=== PATIENT | female | born 1935 | race Caucasian/White ===

== ENCOUNTER 2016-09-12 11:16 | Outpatient (CLI) | payer MEDICARE | END 2016-09-12 11:17 | disposition home or self-care (01) | DX: I48.91 Unspecified atrial fibrillation (principal) ==

== ENCOUNTER 2016-09-19 12:54 | Outpatient (CLI) | payer MEDICARE | END 2016-09-19 12:55 | disposition home or self-care (01) | DX: I48.91 Unspecified atrial fibrillation (principal) ==

== ENCOUNTER 2016-10-03 11:05 | Outpatient (CLI) | payer MEDICARE | END 2016-10-03 11:06 | disposition home or self-care (01) | DX: I48.91 Unspecified atrial fibrillation (principal) ==

== ENCOUNTER 2016-10-09 11:07 | Outpatient (CLI) | payer MEDICARE | END 2016-10-09 11:08 | disposition home or self-care (01) | DX: I48.91 Unspecified atrial fibrillation (principal) ==

== ENCOUNTER 2016-10-16 11:58 | Outpatient (CLI) | payer MEDICARE | END 2016-10-16 11:59 | disposition home or self-care (01) | DX: I48.91 Unspecified atrial fibrillation (principal) ==

== ENCOUNTER 2016-10-23 09:58 | Outpatient (CLI) | payer MEDICARE | END 2016-10-23 09:59 | disposition home or self-care (01) | DX: I48.91 Unspecified atrial fibrillation (principal) ==

== ENCOUNTER 2016-10-24 08:00 | Outpatient (CLI) | payer MEDICARE | END 2016-10-24 08:01 | disposition home or self-care (01) | DX: I48.91 Unspecified atrial fibrillation (principal) ==

== ENCOUNTER 2016-10-30 10:50 | Outpatient (CLI) | payer MEDICARE | END 2016-10-30 10:51 | disposition home or self-care (01) | DX: I48.91 Unspecified atrial fibrillation (principal) ==

== ENCOUNTER 2016-11-06 10:31 | Outpatient (CLI) | payer MEDICARE | END 2016-11-06 10:32 | disposition home or self-care (01) | DX: I48.91 Unspecified atrial fibrillation (principal) ==

== ENCOUNTER 2016-11-13 10:40 | Outpatient (CLI) | payer MEDICARE | END 2016-11-13 10:41 | disposition home or self-care (01) | DX: I48.91 Unspecified atrial fibrillation (principal); I50.32 Chronic diastolic (congestive) heart failure ==

== ENCOUNTER 2016-12-04 10:48 | Outpatient (CLI) | payer MEDICARE | END 2016-12-04 10:49 | disposition home or self-care (01) | DX: I48.91 Unspecified atrial fibrillation (principal) ==

== ENCOUNTER 2016-12-04 23:08 | Outpatient (CLI) | payer MEDICARE | END 2016-12-04 23:09 | disposition critical access hospital (66) | DX: R09.89 Other specified symptoms and signs involving the circulatory and respiratory systems (principal); R26.81 Unsteadiness on feet | CPT/HCPCS: A0425; A0427 ==

== ENCOUNTER 2016-12-04 23:37 | Emergency (ER) | payer MEDICARE ==
[2016-12-05] MEDS ORDERED: POTASSIUM BICARB 25 MEQ TABLET PO ONE ×2 (02:19→02:22)
== END 2016-12-05 04:00 | disposition home or self-care (01) ==
DX: I48.0 Paroxysmal atrial fibrillation (principal); E87.6 Hypokalemia; E03.9 Hypothyroidism, unspecified; J45.909 Unspecified asthma, uncomplicated; I11.0 Hypertensive heart disease with heart failure; I50.9 Heart failure, unspecified; Z87.891 Personal history of nicotine dependence
CPT/HCPCS: 36415; 80048; 84484; 85025; 85610; 93005; 93010; 99284; A9270

== ENCOUNTER 2017-01-09 10:44 | Outpatient (CLI) | payer MEDICARE | END 2017-01-09 10:45 | disposition home or self-care (01) | DX: I48.91 Unspecified atrial fibrillation (principal) ==

== ENCOUNTER 2017-01-29 10:58 | Outpatient (CLI) | payer MEDICARE | END 2017-01-29 10:59 | disposition home or self-care (01) | LOC: LAB.F 10:58 | PROVIDERS: ATTEND Physician Assistant | DX: I48.91 Unspecified atrial fibrillation (principal) | CPT/HCPCS: 85610 ==

== ENCOUNTER 2017-03-16 11:00 | Outpatient (CLI) | payer MEDICARE | END 2017-03-16 11:01 | disposition home or self-care (01) | LOC: LAB.F 11:00 | PROVIDERS: ATTEND Physician Assistant | DX: I48.91 Unspecified atrial fibrillation (principal) | CPT/HCPCS: 85610 ==

== ENCOUNTER 2017-03-31 21:28 | Outpatient (CLI) | payer MEDICARE | END 2017-03-31 21:29 | disposition critical access hospital (66) | LOC: EMS 21:28 | PROVIDERS: ATTEND Surgery | DX: R47.81 Slurred speech (principal); R13.10 Dysphagia, unspecified; R06.02 Shortness of breath | CPT/HCPCS: A0425; A0427 ==

== ENCOUNTER 2017-03-31 22:02 | Emergency (ER) | payer MEDICARE ==
[2017-03-31 22:34] LABS: BASOPHILS % (AUTO) 0.6 %; EOSINOPHILS # (AUTO) 0.1 10^3/uL (0.0-0.7); EOSINOPHILS % (AUTO) 0.9 %; HCT - HEMATOCRIT 36.3 % (37.0-47.0); HGB - HEMOGLOBIN 12.3 g/dL (12.0-16.0); LYMPHOCYTES % (AUTO) 29.7 %; MEAN CORPUSCULAR HEMOGLOBIN 33.1 pg (27.0-31.0); MEAN CORPUSCULAR HGB CONC 33.9 g/dL (32.0-36.0); MEAN CORPUSCULAR VOLUME 97.8 fL (81.0-99.0); MEAN PLATELET VOLUME 8.7 fL (7.9-10.8); MONOCYTES # (AUTO) 0.6 10^3/uL (0.0-1.0); MONOCYTES % (AUTO) 8.1 %; NEUTROPHILS # (AUTO) 4.2 10^3/uL (1.5-6.6); NEUTROPHILS % (AUTO) 60.7 %; RED BLOOD COUNT 3.71 10^6/uL (4.20-5.40); UNCORRECTED WHITE BLOOD COUNT 6.9 x10^3/uL; WHITE BLOOD COUNT 6.9 x10^3/uL (4.8-10.8)
--- NOTE | 2017-03-31 22:40 | ED Physician Documentation ---
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 She says she was thinking clearly and was aware that the words and thoughts in her head were coming out as slurred and, at times, gibberish. This resolved completely PRESSURIZER and she presents asymptomatic. She says she has had similar episodes in the past and has had TIA diagnosis) Timing - duration: Minutes Timing - details: Abrupt onset, Now resolved Quality / character: No: Less responsive, Unresponsive, Confused, Disoriented, Memory Loss, Agitated, Combative, Hallucinating Associated symptoms: No: Fever, Headache, Stiff neck, Dyspnea, Cough, NVD, Urinary sx, General weakness, Focal weakness, Seizure activity, Syncope Contributing factors: Anticoagulated (coumadin) Basline status: Alert and oriented X 3, Ambulatory, Independent Similar symptoms before: Diagnosis (TIA) Review of Systems Constitutional: denies: Fever, Chills, Sweats Eyes: reports: Reviewed and negative Cardiac: reports: Reviewed and negative Respiratory: reports: Reviewed and negative GI: reports: Reviewed and negative : denies: Dysuria, Frequency Musculoskeletal: reports: Reviewed and negative Neurologic: reports: Generalized weakness (BLE weakness, but this is chronic ( she is confident that there is no new weakness)), Difficulty speaking. denies: Focal weakness, Numbness, Confused, Altered mental status, Headache, LOC PD PAST MEDICAL HISTORY - Past Medical History Cardiovascular: Congestive heart failure, Hypertension, Atrial fibrillation Respiratory: Asthma, Shortness of breath Neuro: None Endocrine/Autoimmune: HyPOthyroidism GI: None JACKER: None : None HEENT: None Psych: None Musculoskeletal: Osteoarthritis Derm: None - Past Surgical History Past Surgical History: Yes General: Bowel surgery, Colonoscopy /JACKER: Dilation and currettage HEENT: Cataracts - Present Medications Home Medications: Ambulatory Orders Medication Instructions Recorded Confirmed Levothyroxine [Synthroid] 50 mcg PO MOTUTHFRSA 03/02/13 01/22/16 traZODone [Desyrel] 100 mg PO QPM 08/01/14 01/22/16 Fluticasone [Flonase] 1 spray JAYCEE BID 03/23/15 01/22/16 Potassium Chloride 20 meq PO DAILY 03/23/15 01/22/16 Albuterol Sulfate [Proair Hfa] 2 puffs INH Q4H PRN 01/22/16 01/22/16 Atorvastatin Calcium 40 mg PO QPM 01/22/16 01/22/16 Azelastine HCl [Astelin] 1 - 2 sprays NS BID PRN 01/22/16 01/22/16 Furosemide [Lasix] 40 mg PO DAILY 01/22/16 01/22/16 Levothyroxine [Synthroid] 100 mcg PO SUWE 01/22/16 01/22/16 Mometasone/Formoterol [Dulera 200 2 puffs INH BID 01/22/16 01/22/16 Mcg/5 Mcg Inhaler] Olopatadine HCl [Patanol] 1 drop LEFTEYE BID 01/22/16 01/22/16 oxyCODONE [Roxicodone] 5 mg PO DAILY PRN 01/22/16 01/22/16 Cephalexin [Keflex] 500 mg PO TID #21 capsule 04/11/16 Dexamethasone [Decadron] 4 mg PO DAILY #5 tablet 04/11/16 Omeprazole 20 mg BID 04/11/16 04/11/16 Warfarin [Coumadin] 5 mg QPM 04/11/16 04/11/16 oxyCODONE [Roxicodone] 5 mg PO Q4-6H PRN #15 tablet 04/11/16 Acetaminophen 650 mg PO DAILY PM 12/05/16 12/05/16 Bacillus Coagulans [Probiotic] 2 each PO 12/05/16 Cetirizine [ZyrTEC] 10 mg PO ONCE 12/05/16 12/05/16 Glucosamine/D3/Boswellia Rachel 1 each PO 12/05/16 [Osteo Bi-Flex Tablet] Vitamin B Complex 1 each PO 12/05/16 Metoprolol Tartrate 5 mg PO 03/31/17 - Allergies Allergies/Adverse Reactions: Allergies Allergy/AdvReac Type Severity Reaction Status Date / Time acetaminophen [From Percocet] Allergy Unknown Verified 04/11/16 16:26 aloe vera [From Vagisil] Allergy Unknown Verified 04/11/16 16:27 amitriptyline Allergy Unknown Verified 04/11/16 16:28 amoxicillin trihydrate * Allergy Respiratory Verified 02/18/16 15:40 [From Augmentin] benzocaine [From Vagisil] Allergy Unknown Verified 04/11/16 16:27 ipratropium Allergy Unknown Verified 02/18/16 15:40 medroxyprogesterone acetate * Allergy Unknown Verified 04/11/16 16:26 [From Provera] meperidine HCl * Allergy Unknown Verified 04/11/16 16:27 [From Demerol] mineral oil * [From Vagisil] Allergy Unknown Verified 04/11/16 16:27 morphine Allergy Emesis Verified 02/18/16 15:40 nortriptyline Allergy Unknown Verified 04/11/16 16:28 oxycodone HCl * Allergy Unknown Verified 04/11/16 16:26 [From Percocet] Penicillins Allergy Unknown Verified 02/18/16 15:40 potassium clavulanate * Allergy Respiratory Verified 02/18/16 15:40 [From Augmentin] promethazine HCl * Allergy Unknown Verified 04/11/16 16:27 [From Phenergan] resorcinol [From Vagisil] Allergy Unknown Verified 04/11/16 16:27 starch [From Vagisil] Allergy Unknown Verified 04/11/16 16:27 Sulfa (Sulfonamide Allergy Nausea Verified 02/18/16 15:40 Antibiotics) sulfamethoxazole Allergy Unknown Verified 04/11/16 16:27 [From Bactrim] tiotropium bromide * Allergy Unknown Verified 04/11/16 16:28 [From Spiriva with HandiHaler] trimethoprim [From Bactrim] Allergy Unknown Verified 04/11/16 16:27 vitamin E acetate * Allergy Unknown Verified 04/11/16 16:27 [From Vagisil] vitamins A and D * Allergy Unknown Verified 04/11/16 16:27 [From Vagisil] erythromycin base AdvReac Unknown Verified 04/11/16 16:25 BIND Allergy Intermediate Emesis Uncoded 10/11/15 21:14 - Social History Does the pt smoke?: No Smoking Status: Former smoker Does the pt drink ETOH?: No Does the pt have substance abuse?: No - Immunizations Immunizations are current?: Yes Immunizations: TDAP current <10years - POLST Patient has POLST: No PD ED PE NORMAL - Vitals Vital signs reviewed: Yes - General General: Alert and oriented X 3, No acute distress, Well developed/nourished - HEENT HEENT: PERRL, EOMI, Moist mucous membranes - Neck Neck: Supple, no meningeal sign - Cardiac Cardiac: RRR - Respiratory Respiratory: No respiratory distress, Clear bilaterally - Abdomen Abdomen: Soft, Non tender - Derm Derm: Normal color, Warm and dry - Extremities Extremities: Normal ROM s pain, No edema - Neuro Neuro: Alert and oriented X 3, 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, No motor deficit, No sensory deficit, Normal speech PD ED PE EXPANDED - Cardiac Cardiac: Murmur Present (2/6 [place] cardiac base) Results - Vitals Vitals: Vital Signs - 24 hr 03/31/17 03/31/17 04/01/17 22:08 22:50 00:12 Temperature 36.7 C Heart Rate 69 65 65 Respiratory 16 24 17 Rate Blood Pressure 136/70 H 162/74 H 144/78 H O2 Saturation 97 97 97 Oxygen O2 Source Room air - Labs Labs: Laboratory Tests 03/31/17 03/31/17 03/31/17 22:27 22:27 22:27 WBC 6.9 RBC 3.71 L Hgb 12.3 Hct 36.3 L MCV 97.8 MCH 33.1 H MCHC 33.9 RDW 13.0 Plt Count 193 MPV 8.7 Neut # 4.2 Lymph # 2.0 [place] # 0.6 Eos # 0.1 Baso # 0.0 Absolute Nucleated RBC 0.00 Nucleated RBCs 0.0 PT 29.2 H INR 2.6 H Sodium 137 Potassium 3.7 Chloride 105 Carbon Dioxide 25 Anion Gap 7.0 BUN 20 Creatinine 1.1 H Estimated GFR (MDRD) 48 L Glucose 203 H Calcium 8.4 L Total Bilirubin 0.7 AST 33 ALT 25 Alkaline Phosphatase 76 Total Protein 5.9 L Albumin 3.6 Globulin 2.3 Albumin/Globulin Ratio 1.6 Lipase 19 L Urine Color Urine Clarity Urine pH Ur Specific [place] Urine Protein Urine Glucose (UA) Urine Ketones Urine Occult Blood Urine Nitrite Urine Bilirubin Urine Urobilinogen Ur Leukocyte Esterase Ur Microscopic Review Urine Culture Comments Salicylates < 6.0 Urine Opiates Screen Ur Oxycodone Screen Urine Methadone Screen Ur Propoxyphene Screen Acetaminophen < 10 L Ur Barbiturates Screen Ur Tricyclics Screen Ur Phencyclidine Scrn Ur Amphetamine Screen U Methamphetamines Scrn U Benzodiazepines Scrn Urine Cocaine Screen U Cannabinoids Screen Ethyl Alcohol < 5.0 03/31/17 03/31/17 23:04 23:04 WBC RBC Hgb Hct MCV MCH MCHC RDW Plt Count MPV Neut # Lymph # [place]uce # Eos # Baso # Absolute Nucleated RBC Nucleated RBCs PT INR Sodium Potassium Chloride Carbon Dioxide Anion Gap BUN Creatinine Estimated GFR (MDRD) Glucose Calcium Total Bilirubin AST ALT Alkaline Phosphatase Total Protein Albumin Globulin Albumin/Globulin Ratio Lipase Urine Color YELLOW Urine Clarity CLEAR Urine pH 5.5 Ur Specific [place] 1.025 Urine Protein NEGATIVE Urine Glucose (UA) NEGATIVE Urine Ketones NEGATIVE Urine Occult Blood NEGATIVE Urine Nitrite NEGATIVE Urine Bilirubin NEGATIVE Urine Urobilinogen 0.2 (NORMAL) Ur Leukocyte Esterase NEGATIVE Ur Microscopic Review NOT INDICATED Urine Culture Comments NOT INDICATED Salicylates Urine Opiates Screen NEGATIVE Ur Oxycodone Screen NEGATIVE Urine Methadone Screen NEGATIVE Ur Propoxyphene Screen NEGATIVE Acetaminophen Ur Barbiturates Screen NEGATIVE Ur Tricyclics Screen NEGATIVE Ur Phencyclidine Scrn NEGATIVE Ur Amphetamine Screen NEGATIVE U Methamphetamines Scrn NEGATIVE U Benzodiazepines Scrn NEGATIVE Urine Cocaine Screen NEGATIVE U Cannabinoids Screen NEGATIVE Ethyl Alcohol - Rads (name of study) CT head Radiology: Prelim report reviewed, See rad report PD MEDICAL DECISION MAKING - ED course Complexity details: reviewed old records, reviewed results, re-evaluated patient , considered differential, d/w patient, d/w family ED course: EKG from field reviewed, no concerning findings Departure - Departure Disposition: 01 Home, Self Care Clinical Impression: TIA (transient ischemic attack) Qualifiers: Transient cerebral ischemia type: unspecified Qualified Code(s): G45.9 - Transient cerebral ischemic attack, unspecified Condition: Good Instructions: ED Transient Ischemic Attack Comments: Contact your primary care physician as well as 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 Discharge Date/Time: 04/01/17 00:12
[2017-03-31 22:43] LABS: INR 2.6 (0.8-1.2); PT - PROTHROMBIN TIME 29.2 secs (9.9-12.6)
[2017-03-31 22:50] LABS: ALBUMIN/GLOBULIN RATIO 1.6 (1.0-2.2); BILIRUBIN,TOTAL 0.7 mg/dL (0.2-1.0); BUN - BLOOD UREA NITROGEN 20 mg/dL (6-20); CALCIUM 8.4 mg/dL (8.5-10.3); CARBON DIOXIDE - CO2 25 mmol/L (21-32); CHLORIDE 105 mmol/L (101-111); CREATININE 1.1 mg/dL (0.4-1.0); GFR - MDRD 48 (>89); GLUCOSE 203 mg/dL (70-100); LIPASE 19 U/L (22-51); POTASSIUM 3.7 mmol/L (3.5-5.0); SALICYLATE < 6.0 mg/dL; SODIUM 137 mmol/L (135-145); TOTAL PROTEIN 5.9 g/dL (6.7-8.2)
[2017-03-31 22:54] LABS: ACETAMINOPHEN < 10 ug/mL (10-30)
--- NOTE | 2017-03-31 23:08 | CT Preliminary Report ---
Exam: CT Head W/O IMPRESSION: No acute intracranial process identified. Stable finding since 05/25/2014. [facility] SITE ID: [id number]
--- NOTE | 2017-03-31 23:11 | CT Report ---
EXAM: CT HEAD EXAM DATE: 03/31/2017 10:46 PM. CLINICAL HISTORY: Dysarthria, aphasia. COMPARISON: 05/25/2014. TECHNIQUE: Multiaxial CT images were obtained from the foramen magnum to the vertex. IV contrast: Non e. Reformats: Coronal. In accordance with CT protocol optimization, one or more of the following dose reduction techniques w ere utilized for this exam: automated exposure control, adjustment of mA and/or KV based on patient s ize, or use of iterative reconstructive technique. FINDINGS: Parenchyma: No intraparenchymal hemorrhage. No evidence of mass, midline shift, or CT findings of inf arction. Major-white differentiation is distinct. Prominent perivascular space left temporal stem. Whi te matter hypodensity adjacent insula, as before. Extraaxial Spaces: Normal for age. No subdural or epidural collections identified. Ventricles: Normal in size and position. Sinuses: Imaged paranasal sinuses, orbits, and mastoids show no significant abnormality. Bones: No evidence of fracture or calvarial defect. Other: None. IMPRESSION: No acute intracranial process identified. Stable finding since 05/25/2014. [facility] Referring Provider Line: [phone] SITE ID: [id number]
[2017-03-31 23:12] LABS: BILIRUBIN,URINE NEGATIVE (NEGATIVE); PH,URINE 5.5 PH (5.0-7.5)
[2017-03-31 23:15] LABS: UA CHARGE (STRIP ONLY) YES; UR CULTURE IF IND NOT INDICATED
[2017-04-01 00:14] VITALS: BP 144/78
== END 2017-04-01 00:12 | disposition home or self-care (01) ==
LOC: EDUNIT# → ED 22:02
DX: G45.9 Transient cerebral ischemic attack, unspecified (principal); I11.0 Hypertensive heart disease with heart failure; I50.9 Heart failure, unspecified; I48.91 Unspecified atrial fibrillation; Z79.01 Long term (current) use of anticoagulants; J45.909 Unspecified asthma, uncomplicated; E03.9 Hypothyroidism, unspecified; Z87.891 Personal history of nicotine dependence
CPT/HCPCS: 36415; 70450; 80053; 80306; 80307; 81003; 83690; 85025; 85610; 99284; G0480; 80320; 80329; 81001; 87086

== ENCOUNTER 2017-04-19 09:47 | Outpatient (CLI) | payer MEDICARE ==
--- NOTE | 2017-04-19 13:04 | Ultrasound Report ---
CAROTID DUPLEX: 04/19/2017 CLINICAL INDICATION: TIA. TECHNIQUE: Real-time sonographic vascular imaging was performed by the box attacher through the carotid arteries utilizing both color-flow and Doppler spectral analysis. Multiple appliance service representative static images were saved for review. Vessel PSV cm/sec 2D Plaque Estimate % ICA/CCA PSV EDV cm/sec % Stenosis RCCA Prox 78 -- RCCA Dist 74 15 RECA 59 -- RT BULB 43 -- 0.58 12 STEVEN Prox 40 -- 0.54 10 STEVEN Mid 69 -- 0.93 21 STEVEN Dist 93 -- 1.26 23 RVA 44 RVA flow direction: Antegrade. Vessel PSV cm/sec 2D Plaque Estimate % ICA/CCA PSV EDV cm/sec % Stenosis LCCA Prox 90 -- LCCA Dist 72 14 LECA 54 -- LFT BULB 58 -- 0.81 11 LICA Prox 63 -- 0.88 16 LICA Mid 91 -- 1.26 25 LICA Dist 81 -- 1.13 21 LVA 20 LVA flow direction: Antegrade. Velocity criteria are extrapolated from diameter data as defined by the Society of Radiologists in Ultrasound Consensus Conference Radiology 2003; 229; 340-346. Degree of Stenosis % ICA PSV cm/sec Plaque Estimate % ICA/CCA RSV Ratio ICA EDV cm/sec Normal < 125 None < 2.0 < 40 <50 < 125 < 50 < 2.0 < 40 50-69 125 - 130 >/= 50 2.0 - 4.0 40 - 100 >/= 70 but less than near occlusion > 230 >/= 50 > 4.0 > 100 Near occlusion High, low, or undetectable Visible lumen Variable Variable Total occlusion Undetectable No detectable lumen Not applicable Not applicable FINDINGS RIGHT: There is mild plaquing in the right carotid bifurcation, without evidence of a focal hemodynamically significant stenosis. LEFT: There is mild plaquing in the left carotid bifurcation, without evidence of a focal hemodynamically significant stenosis. The vertebral arteries demonstrate antegrade flow bilaterally. IMPRESSION: NO EVIDENCE OF A HEMODYNAMICALLY SIGNIFICANT CAROTID STENOSIS. MTDD
== END 2017-04-19 09:48 | disposition home or self-care (01) ==
LOC: DI 09:47
PROVIDERS: ATTEND Family Medicine
DX: G45.9 Transient cerebral ischemic attack, unspecified (principal)
CPT/HCPCS: 93880

== ENCOUNTER 2017-04-23 11:01 | Outpatient (CLI) | payer MEDICARE | END 2017-04-23 11:02 | disposition home or self-care (01) | LOC: EDSEX → LAB.F 11:01 | PROVIDERS: ATTEND Physician Assistant | DX: I48.91 Unspecified atrial fibrillation (principal) | CPT/HCPCS: 85610 ==

== ENCOUNTER 2017-04-24 11:33 | Outpatient (CLI) | payer MEDICARE | END 2017-04-24 11:34 | disposition home or self-care (01) | LOC: LAB.F 11:33 | PROVIDERS: ATTEND Family Medicine | DX: I48.91 Unspecified atrial fibrillation (principal) | CPT/HCPCS: 85610 ==

== ENCOUNTER 2017-04-27 12:40 | Outpatient (CLI) | payer MEDICARE | END 2017-04-27 12:41 | disposition home or self-care (01) | LOC: LAB.F 12:40 | PROVIDERS: ATTEND Physician Assistant | DX: I48.91 Unspecified atrial fibrillation (principal) | CPT/HCPCS: 85610 ==

== ENCOUNTER 2017-05-04 11:21 | Outpatient (CLI) | payer MEDICARE | END 2017-05-04 11:22 | disposition home or self-care (01) | LOC: LAB.F 11:21 | PROVIDERS: ATTEND Physician Assistant | DX: I48.91 Unspecified atrial fibrillation (principal) | CPT/HCPCS: 85610 ==

== ENCOUNTER 2017-05-09 15:09 | Outpatient (CLI) | payer MEDICARE | END 2017-05-09 15:10 | disposition short-term general hospital (02) | LOC: EMS 15:09 | PROVIDERS: ATTEND Surgery | DX: R00.0 Tachycardia, unspecified (principal); R06.02 Shortness of breath | CPT/HCPCS: A0170; A0425; A0427 ==

== ENCOUNTER 2017-05-18 19:34 | Outpatient (CLI) | payer MEDICARE | END 2017-05-18 19:35 | disposition critical access hospital (66) | LOC: EMS 19:34 | PROVIDERS: ATTEND Surgery | DX: R09.89 Other specified symptoms and signs involving the circulatory and respiratory systems (principal) | CPT/HCPCS: A0425; A0427 ==

== ENCOUNTER 2017-05-18 20:00 | Emergency (ER) | payer MEDICARE ==
--- NOTE | 2017-05-18 20:11 | ED Physician Documentation ---
History of Present Illness - Stated complaint Stated Complaint: SOA/AFIB - Chief complaint Chief Complaint: Cardiac - History obtained from History obtained from: Patient - History of Present Illness Timing: Today Pain level max: 5 Pain level now: 4 Improved by: no ameliorating factors Worsened by: exertion - Additonal information Additional information: episode of diaphoresis this morning with light activity. diaphoresis resolved but was followed by fatigue and chest discomfort. This continued during the day and afternoon. this evening, she used her BP cuff and noted the heart rate was reading 120s-130s and irregular. Medics found patient in MARTIN, started IV and gave NS IV. Patient converted to NSR en route. Review of Systems Constitutional: reports: Fatigue, Sweats. denies: Fever, Chills Cardiac: reports: Chest pain / pressure. denies: Palpitations, Pedal edema, Calf pain Respiratory: reports: Dyspnea. denies: Cough GI: reports: Reviewed and negative Neurologic: reports: Reviewed and negative PD PAST MEDICAL HISTORY - Past Medical History Cardiovascular: Congestive heart failure, Hypertension, Atrial fibrillation Respiratory: Asthma, Shortness of breath Neuro: None Endocrine/Autoimmune: HyPOthyroidism GI: None MANAGER QUALITY SYSTEMS: None : None HEENT: None Psych: None Musculoskeletal: Osteoarthritis Derm: None - Past Surgical History Past Surgical History: Yes General: Bowel surgery, Colonoscopy /MANAGER QUALITY SYSTEMS: Dilation and currettage HEENT: Cataracts - Present Medications Home Medications: Ambulatory Orders Medication Instructions Recorded Confirmed Levothyroxine [Synthroid] 50 mcg PO MOTUTHFRSA 03/02/13 01/22/16 traZODone [Desyrel] 100 mg PO QPM 08/01/14 01/22/16 Fluticasone [Flonase] 1 spray JAYCEE BID 03/23/15 01/22/16 Potassium Chloride 20 meq PO DAILY 03/23/15 01/22/16 Albuterol Sulfate [Proair Hfa] 2 puffs INH Q4H PRN 01/22/16 01/22/16 Atorvastatin Calcium 40 mg PO QPM 01/22/16 01/22/16 Azelastine HCl [Astelin] 1 - 2 sprays NS BID PRN 01/22/16 01/22/16 Furosemide [Lasix] 40 mg PO DAILY 01/22/16 01/22/16 Levothyroxine [Synthroid] 100 mcg PO SUWE 01/22/16 01/22/16 Mometasone/Formoterol [Dulera 200 2 puffs INH BID 01/22/16 01/22/16 Mcg/5 Mcg Inhaler] Olopatadine HCl [Patanol] 1 drop LEFTEYE BID 01/22/16 01/22/16 oxyCODONE [Roxicodone] 5 mg PO DAILY PRN 01/22/16 01/22/16 Cephalexin [Keflex] 500 mg PO TID #21 capsule 04/11/16 Dexamethasone [Decadron] 4 mg PO DAILY #5 tablet 04/11/16 Omeprazole 20 mg BID 04/11/16 04/11/16 Warfarin [Coumadin] 5 mg QPM 04/11/16 04/11/16 oxyCODONE [Roxicodone] 5 mg PO Q4-6H PRN #15 tablet 04/11/16 Acetaminophen 650 mg PO DAILY PM 12/05/16 12/05/16 Bacillus Coagulans [Probiotic] 2 each PO 12/05/16 Cetirizine [ZyrTEC] 10 mg PO ONCE 12/05/16 12/05/16 Glucosamine/D3/Boswellia Rachel 1 each PO 12/05/16 [Osteo Bi-Flex Tablet] Vitamin B Complex 1 each PO 12/05/16 Metoprolol Tartrate 5 mg PO 03/31/17 - Allergies Allergies/Adverse Reactions: Allergies Allergy/AdvReac Type Severity Reaction Status Date / Time acetaminophen [From Percocet] Allergy Unknown Verified 04/11/16 16:26 aloe vera [From Vagisil] Allergy Unknown Verified 04/11/16 16:27 amitriptyline Allergy Unknown Verified 04/11/16 16:28 amoxicillin trihydrate * Allergy Respiratory Verified 02/18/16 15:40 [From Augmentin] benzocaine [From Vagisil] Allergy Unknown Verified 04/11/16 16:27 ipratropium Allergy Unknown Verified 02/18/16 15:40 medroxyprogesterone acetate * Allergy Unknown Verified 04/11/16 16:26 [From Provera] meperidine HCl * Allergy Unknown Verified 04/11/16 16:27 [From Demerol] mineral oil * [From Vagisil] Allergy Unknown Verified 04/11/16 16:27 morphine Allergy Emesis Verified 02/18/16 15:40 nortriptyline Allergy Unknown Verified 04/11/16 16:28 oxycodone HCl * Allergy Unknown Verified 04/11/16 16:26 [From Percocet] Penicillins Allergy Unknown Verified 02/18/16 15:40 potassium clavulanate * Allergy Respiratory Verified 02/18/16 15:40 [From Augmentin] promethazine HCl * Allergy Unknown Verified 04/11/16 16:27 [From Phenergan] resorcinol [From Vagisil] Allergy Unknown Verified 04/11/16 16:27 starch [From Vagisil] Allergy Unknown Verified 04/11/16 16:27 Sulfa (Sulfonamide Allergy Nausea Verified 02/18/16 15:40 Antibiotics) sulfamethoxazole Allergy Unknown Verified 04/11/16 16:27 [From Bactrim] tiotropium bromide * Allergy Unknown Verified 04/11/16 16:28 [From Spiriva with HandiHaler] trimethoprim [From Bactrim] Allergy Unknown Verified 04/11/16 16:27 vitamin E acetate * Allergy Unknown Verified 04/11/16 16:27 [From Vagisil] vitamins A and D * Allergy Unknown Verified 04/11/16 16:27 [From Vagisil] erythromycin base AdvReac Unknown Verified 04/11/16 16:25 BIND Allergy Intermediate Emesis Uncoded 10/11/15 21:14 - Social History Does the pt smoke?: No Smoking Status: Former smoker Does the pt drink ETOH?: No Does the pt have substance abuse?: No - Immunizations Immunizations are current?: Yes Immunizations: TDAP current <10years - POLST Patient has POLST: No PD ED PE NORMAL - Vitals Vital signs reviewed: Yes - General General: Alert and oriented X 3, No acute distress, Well developed/nourished - HEENT HEENT: Moist mucous membranes - Neck Neck: Supple, no meningeal sign - Cardiac Cardiac: RRR, No murmur, No gallop, No rub - Respiratory Respiratory: No respiratory distress, Clear bilaterally - Abdomen Abdomen: Soft, Non tender - Derm Derm: Normal color - Extremities Extremities: No edema - Neuro Neuro: Alert and oriented X 3 Results - Vitals Vitals: Vital Signs - 24 hr 05/18/17 05/18/17 05/18/17 20:02 20:22 21:12 Temperature 36.2 C L Heart Rate 57 L 63 Respiratory 25 H 14 Rate Blood Pressure 130/75 132/64 H Blood Pressure 122/68 [Left] O2 Saturation 98 99 05/18/17 21:47 Temperature Heart Rate 54 L Respiratory 16 Rate Blood Pressure 139/61 H Blood Pressure [Left] O2 Saturation 98 Oxygen O2 Source Room air - EKG (time done) No standard instances Rate: Rate (enter#) (57) Rhythm: NSR [place]: Normal Intervals: Normal [place] QRS: Normal Ischemia: Normal ST segments - Labs Labs: Laboratory Tests 05/18/17 05/18/17 05/18/17 20:11 20:11 20:11 WBC 8.0 RBC 3.76 L Hgb 12.7 Hct 36.6 L MCV 97.2 MCH 33.7 H MCHC 34.7 RDW 12.6 Plt Count 205 MPV 9.0 Neut # 5.0 Lymph # 2.1 [place] # 0.8 Eos # 0.1 Baso # 0.1 Absolute Nucleated RBC 0.00 Nucleated RBCs 0.0 PT INR Sodium 139 Potassium 3.6 Chloride 106 Carbon Dioxide 25 Anion Gap 8.0 BUN 18 Creatinine 1.0 Estimated GFR (MDRD) 53 L Glucose 98 Calcium 8.6 Total Bilirubin 0.7 AST 35 ALT 24 Alkaline Phosphatase 71 Troponin I < 0.04 Total Protein 6.0 L Albumin 3.5 Globulin 2.5 Albumin/Globulin Ratio 1.4 Lipase 20 L 05/18/17 20:11 WBC RBC Hgb Hct MCV MCH MCHC RDW Plt Count MPV Neut # Lymph # [place] # Eos # Baso # Absolute Nucleated RBC Nucleated RBCs PT 18.2 H INR 1.6 H Sodium Potassium Chloride Carbon Dioxide Anion Gap BUN Creatinine Estimated GFR (MDRD) Glucose Calcium Total Bilirubin AST ALT Alkaline Phosphatase Troponin I Total Protein Albumin Globulin Albumin/Globulin Ratio Lipase PD MEDICAL DECISION MAKING - ED course Complexity details: reviewed old records, reviewed results, re-evaluated patient , considered differential, d/w patient Departure - Departure Disposition: 01 Home, Self Care Clinical Impression: Atrial fibrillation, Chest pain Condition: Good Instructions: ED Chest Pain Atypical Unkn Cause Follow-Up: Ania Art PA [Primary Care Provider] - Comments: Your INR (a blood test that measures how thin your blood is, sometimes referred to as a "coumadin level") was 1.6 today. This is lower than it should be with the coumadin (warfarin) you are taking, and puts you at risk of forming a clot from the atrial fibrillation. I recommend you take a half-dose IN ADDITION to your usual nighttime dose tonight. Tomorrow (05/19/17), you should resume your usual dosing. Discharge Date/Time: 05/18/17 22:00
[2017-05-18 20:19] LABS: BASOPHILS # (AUTO) 0.1 10^3/uL (0.0-0.1); BASOPHILS % (AUTO) 0.7 %; EOSINOPHILS # (AUTO) 0.1 10^3/uL (0.0-0.7); EOSINOPHILS % (AUTO) 0.8 %; HCT - HEMATOCRIT 36.6 % (37.0-47.0); HGB - HEMOGLOBIN 12.7 g/dL (12.0-16.0); LYMPHOCYTES # (AUTO) 2.1 10^3/uL (1.5-3.5); LYMPHOCYTES % (AUTO) 26.4 %; MEAN CORPUSCULAR HEMOGLOBIN 33.7 pg (27.0-31.0); MEAN CORPUSCULAR HGB CONC 34.7 g/dL (32.0-36.0); MEAN CORPUSCULAR VOLUME 97.2 fL (81.0-99.0); MONOCYTES # (AUTO) 0.8 10^3/uL (0.0-1.0); MONOCYTES % (AUTO) 9.3 %; NEUTROPHILS % (AUTO) 62.8 %; RED BLOOD COUNT 3.76 10^6/uL (4.20-5.40); RED CELL DISTRIBUTION WIDTH 12.6 % (12.0-15.0)
[2017-05-18] MEDS ORDERED: SODIUM CHLORIDE FLUSH 0.9% 10 ML SYRINGE IVP ONE (20:20)
[2017-05-18 20:26] LABS: INR 1.6 (0.8-1.2); PT - PROTHROMBIN TIME 18.2 secs (9.9-12.6)
[2017-05-18 20:32] LABS: ALBUMIN/GLOBULIN RATIO 1.4 (1.0-2.2); BILIRUBIN,TOTAL 0.7 mg/dL (0.2-1.0); CALCIUM 8.6 mg/dL (8.5-10.3); POTASSIUM 3.6 mmol/L (3.5-5.0)
[2017-05-18 21:48] VITALS: BP 139/61
== END 2017-05-18 22:00 | disposition home or self-care (01) ==
LOC: EDUNIT# → ED 20:00
DX: I48.91 Unspecified atrial fibrillation (principal); Z79.01 Long term (current) use of anticoagulants; I45.10 Unspecified right bundle-branch block; R94.31 Abnormal electrocardiogram [ECG] [EKG]; I11.0 Hypertensive heart disease with heart failure; I50.9 Heart failure, unspecified; J45.909 Unspecified asthma, uncomplicated; E03.9 Hypothyroidism, unspecified; M19.90 Unspecified osteoarthritis, unspecified site; Z87.891 Personal history of nicotine dependence
CPT/HCPCS: 36415; 80053; 83690; 84484; 85025; 85610; 93005; 99284

== ENCOUNTER 2017-05-20 11:39 | Emergency (ER) | payer MEDICARE ==
[2017-05-20] MEDS ORDERED: HYDROmorphone 1 MG/ML SYRINGE IVP STA (12:39)
--- NOTE | 2017-05-20 12:43 | ED Physician Documentation ---
PD HPI CHEST PAIN - Stated complaint Stated Complaint: UPPER BACK PX, SOA - Chief complaint Chief Complaint: Resp - History obtained from History obtained from: Patient, Family - History of Present Illness Timing - onset: Other (81-year-old woman with history of paroxysmal atrial fibrillation on warfarin who developed atraumatic mid back pain radiating to her chest yesterday around 10 AM without specific injury. It is much worse if she takes deep breath or moves or bends or twists. It is not exertional though. She does feel short of breath with it. Review of the chart shows she had similar episode in 2015 although she says this was different albeit her examination was similar, CT of the chest and thoracic spine at that time were without specific diagnosis. It was felt to be muscular. She denies any fever, nausea, abdominal pain, or trouble with her bowel movements.) Review of Systems Ten Systems: 10 systems reviewed and negative Constitutional: denies: Fever, Chills, Myalgias Nose: denies: Rhinorrhea / runny nose, Congestion Cardiac: denies: Pedal edema, Calf pain Respiratory: denies: Cough GI: denies: Abdominal Pain, Nausea, Vomiting PD PAST MEDICAL HISTORY - Past Medical History Past Medical History: Yes Cardiovascular: Congestive heart failure, Hypertension, Atrial fibrillation Respiratory: Asthma, Shortness of breath Neuro: None Endocrine/Autoimmune: HyPOthyroidism GI: None 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 : None HEENT: None Psych: None Musculoskeletal: Osteoarthritis Derm: None - Past Surgical History Past Surgical History: Yes General: Bowel surgery, Colonoscopy /OIL WELL PERFORATOR OPERATOR: Dilation and currettage HEENT: Cataracts - Present Medications Home Medications: Ambulatory Orders Medication Instructions Recorded Confirmed Levothyroxine [Synthroid] 50 mcg PO MOTUTHFRSA 03/02/13 05/20/17 traZODone [Desyrel] 100 mg PO QPM 08/01/14 05/20/17 Fluticasone [Flonase] 1 spray JAYCEE BID 03/23/15 05/20/17 Potassium Chloride 20 meq PO DAILY 03/23/15 05/20/17 Albuterol Sulfate [Proair Hfa] 2 puffs INH Q4H PRN 01/22/16 05/20/17 Atorvastatin Calcium 60 mg PO QPM 01/22/16 05/20/17 Azelastine HCl [Astelin] 1 - 2 sprays NS BID PRN 01/22/16 05/20/17 Furosemide [Lasix] 40 mg PO DAILY 01/22/16 05/20/17 Levothyroxine [Synthroid] 100 mcg PO SUWE 01/22/16 05/20/17 Mometasone/Formoterol [Dulera 200 2 puffs INH BID 01/22/16 05/20/17 Mcg/5 Mcg Inhaler] Olopatadine HCl [Patanol] 1 drop LEFTEYE BID 01/22/16 05/20/17 oxyCODONE [Roxicodone] 5 mg PO DAILY PRN 01/22/16 05/20/17 Omeprazole 20 mg BID 04/11/16 05/20/17 Warfarin [Coumadin] 5 mg QPM 04/11/16 05/20/17 oxyCODONE [Roxicodone] 5 mg PO Q4-6H PRN #15 tablet 04/11/16 05/20/17 Acetaminophen 650 mg PO DAILY PM 12/05/16 05/20/17 Bacillus Coagulans [Probiotic] 2 each PO DAILY 12/05/16 05/20/17 Cetirizine [ZyrTEC] 10 mg PO ONCE 12/05/16 05/20/17 Glucosamine/D3/Boswellia Rachel 1 each PO DAILY 12/05/16 05/20/17 [Osteo Bi-Flex Tablet] Vitamin B Complex 1 each PO DAILY 12/05/16 05/20/17 Metoprolol Tartrate 5 mg PO DAILY 03/31/17 05/20/17 Calcitonin [Fortical] 1 sprays JAYCEE DAILY #1 bottle 05/20/17 Oxycodone HCl 10 mg PO Q4H PRN #20 tablet 05/20/17 - Allergies Allergies/Adverse Reactions: Allergies Allergy/AdvReac Type Severity Reaction Status Date / Time acetaminophen [From Percocet] Allergy Unknown Verified 05/20/17 11:53 aloe vera [From Vagisil] Allergy Unknown Verified 05/20/17 11:53 amitriptyline Allergy Unknown Verified 05/20/17 11:53 amoxicillin trihydrate * Allergy Respiratory Verified 05/20/17 11:53 [From Augmentin] benzocaine [From Vagisil] Allergy Unknown Verified 05/20/17 11:53 ipratropium Allergy Unknown Verified 05/20/17 11:53 medroxyprogesterone acetate * Allergy Unknown Verified 05/20/17 11:53 [From Provera] meperidine HCl * Allergy Unknown Verified 05/20/17 11:53 [From Demerol] mineral oil * [From Vagisil] Allergy Unknown Verified 05/20/17 11:53 morphine Allergy Emesis Verified 05/20/17 11:53 nortriptyline Allergy Unknown Verified 05/20/17 11:53 oxycodone HCl * Allergy Unknown Verified 05/20/17 11:53 [From Percocet] Penicillins Allergy Unknown Verified 05/20/17 11:53 potassium clavulanate * Allergy Respiratory Verified 05/20/17 11:53 [From Augmentin] promethazine HCl * Allergy Unknown Verified 05/20/17 11:53 [From Phenergan] resorcinol [From Vagisil] Allergy Unknown Verified 05/20/17 11:53 starch [From Vagisil] Allergy Unknown Verified 05/20/17 11:53 Sulfa (Sulfonamide Allergy Nausea Verified 05/20/17 11:53 Antibiotics) sulfamethoxazole Allergy Unknown Verified 05/20/17 11:53 [From Bactrim] tiotropium bromide * Allergy Unknown Verified 05/20/17 11:53 [From Spiriva with HandiHaler] trimethoprim [From Bactrim] Allergy Unknown Verified 05/20/17 11:53 vitamin E acetate * Allergy Unknown Verified 05/20/17 11:53 [From Vagisil] vitamins A and D * Allergy Unknown Verified 05/20/17 11:53 [From Vagisil] erythromycin base AdvReac Unknown Verified 05/20/17 11:53 BIND Allergy Intermediate Emesis Uncoded 05/20/17 11:53 - Social History Does the pt smoke?: No Smoking Status: Former smoker Does the pt drink ETOH?: No Does the pt have substance abuse?: No - Family History Family history: reports: Non contributory - Immunizations Immunizations are current?: Yes Immunizations: TDAP current <10years - POLST Patient has POLST: No PD ED PE NORMAL - Vitals Vital signs reviewed: Yes - General General: Alert and oriented X 3, Other (Winces with motion, comfortable at rest) - HEENT HEENT: PERRL, EOMI - Neck Neck: Supple, no meningeal sign, No bony TTP - Cardiac Cardiac: RRR, No murmur - Respiratory Respiratory: No respiratory distress, Clear bilaterally - Abdomen Abdomen: Non tender - Back Back: No spinal TTP, Other (Quite tender to the rhomboid and parathoracic musculature on both sides without midline spinal tenderness.) - Extremities Extremities: No deformity, No edema, No calf tenderness / cord - Neuro Neuro: Alert and oriented X 3, No motor deficit, No sensory deficit, Normal speech - Psych Psych: Normal mood, Normal affect Results - Vitals Vitals: Vital Signs - 24 hr 05/20/17 05/20/17 05/20/17 11:48 13:33 14:28 Temperature 36.6 C Heart Rate 57 L 56 L 63 Respiratory 20 14 14 Rate Blood Pressure 133/67 H 116/60 108/53 L O2 Saturation 99 100 94 Oxygen O2 Source Room air - EKG (time done) 1319 Rate: Rate (enter#) (56) Rhythm: NSR [place]: Normal Intervals: RBBB Ischemia: Normal ST segments Computer interpretation: Agree with computer - Labs Labs: Laboratory Tests 05/20/17 05/20/17 05/20/17 13:10 13:10 13:10 WBC 9.3 RBC 3.94 L Hgb 13.3 Hct 38.7 MCV 98.0 MCH 33.7 H MCHC 34.4 RDW 12.9 Plt Count 235 MPV 9.6 Neut # 6.7 H Lymph # 1.7 [place] # 0.8 Eos # 0.1 Baso # 0.0 Absolute Nucleated RBC 0.00 Nucleated RBCs 0.0 PT INR Sodium 137 Potassium 3.7 Chloride 104 Carbon Dioxide 26 Anion Gap 7.0 BUN 20 Creatinine 1.0 Estimated GFR (MDRD) 53 L Glucose 101 H Calcium 8.8 Total Bilirubin 0.7 AST 39 ALT 24 Alkaline Phosphatase 79 Troponin I < 0.04 Total Protein 6.4 L Albumin 3.5 Globulin 2.9 Albumin/Globulin Ratio 1.2 Lipase 18 L 05/20/17 13:10 WBC RBC Hgb Hct MCV MCH MCHC RDW Plt Count MPV Neut # Lymph # [place] # Eos # Baso # Absolute Nucleated RBC Nucleated RBCs PT 23.4 H INR 2.1 H Sodium Potassium Chloride Carbon Dioxide Anion Gap BUN Creatinine Estimated GFR (MDRD) Glucose Calcium Total Bilirubin AST ALT Alkaline Phosphatase Troponin I Total Protein Albumin Globulin Albumin/Globulin Ratio Lipase - Rads (name of study) XR 2v Chest and T spine Radiology: EMP read contemporaneously (Chest x-ray is clear, there is a new since 2006 compression fracture of probably T6 with one third loss of height anteriorly.) PD MEDICAL DECISION MAKING - ED course ED course: 81-year-old woman presents with acute back pain, it does seem to be musculoskeletal based on history and physical examination. X-ray demonstrates a at least somewhat new T6 compression fracture which may be causative. She felt comfortable going home after a milligram of Dilaudid and some time to rest here. Departure - Departure Disposition: Home, Self Care Clinical Impression: Muscle spasm of back Back pain Qualifiers: Back pain location: thoracic back pain Chronicity: acute Back pain laterality: midline Qualified Code(s): M54.6 - Pain in thoracic spine Wedge compression fracture of T6 vertebra Qualifiers: Encounter type: initial encounter Fracture type: closed Qualified Code(s): S22.050A - Wedge compression fracture of T5-T6 vertebra, initial encounter for closed fracture Condition: Good Record reviewed to determine appropriate education?: Yes Instructions: ED Fx Comp Vertebral Follow-Up: Grzegorz Diamond MD [Provider Admit Priv/Credential] - Tomorrow Prescriptions: Calcitonin [Fortical] 1 sprays JAYCEE DAILY #1 bottle Oxycodone HCl 10 mg PO Q4H PRN #20 tablet PRN Reason: Pain Comments: Do not drink or drive while taking narcotic pain medication. Note that many narcotic pain relievers also contain Tylenol/acetaminophen. Please ensure that your total dose of acetaminophen from all sources does not exceed 3 g (3000 mg) per day. You may get constipated while on this medication. Take a stool softener such as Colace twice a day while you are on it. Also add an [id number] laxative such as senna or MiraLAX on any day that you do not have a bowel movement. If you received a narcotic pain medication or sedative while in the emergency department, do not drive for the next 24 hours.
[2017-05-20] MEDS ORDERED: HYDROmorphone 1 MG/ML SYRINGE ONE (13:13)
[2017-05-20] MEDS ORDERED: SODIUM CHLORIDE FLUSH 0.9% 10 ML SYRINGE IVP ONE (13:13)
--- NOTE | 2017-05-20 13:14 | XRAY Preliminary Report ---
Exam: XR Chest 2 View PA/LAT IMPRESSION: 1. No acute pulmonary consolidation. 2. Age-indeterminate compression fracture of T6. [facility] SITE ID: [id number]
--- NOTE | 2017-05-20 13:16 | XRAY Report ---
EXAM: CHEST RADIOGRAPHY EXAM DATE: 05/20/2017 01:01 PM. CLINICAL HISTORY: Severe pain COMPARISON: Chest x-ray 04/11/2016. TECHNIQUE: 2 views. FINDINGS: Lungs/Pleura: Mild hyperinflation without pleural effusion or pneumothorax. No focal consolidation. Mediastinum: Normal heart size with aortic tortuosity and atherosclerotic calcification. Other: Age-indeterminate compression fracture of T6. Surgical clips in left upper quadrant. IMPRESSION: 1. No acute pulmonary consolidation. 2. Age-indeterminate compression fracture of T6. [facility] Referring Provider Line: [phone] SITE ID: [id number]
--- NOTE | 2017-05-20 13:18 | XRAY Preliminary Report ---
Exam: XR Thoracic Spine 2 View IMPRESSION: Osteopenia with age-indeterminate (although new since 2016) compression fracture, probabl y T6. Loss of height is near one third anteriorly. No bony retropulsed fragments. [facility] SITE ID: [id number]
[2017-05-20 13:19] LABS: BASOPHILS % (AUTO) 0.3 %; EOSINOPHILS # (AUTO) 0.1 10^3/uL (0.0-0.7); EOSINOPHILS % (AUTO) 0.9 %; HCT - HEMATOCRIT 38.7 % (37.0-47.0); HGB - HEMOGLOBIN 13.3 g/dL (12.0-16.0); LYMPHOCYTES # (AUTO) 1.7 10^3/uL (1.5-3.5); LYMPHOCYTES % (AUTO) 18.4 %; MEAN CORPUSCULAR HEMOGLOBIN 33.7 pg (27.0-31.0); MEAN CORPUSCULAR HGB CONC 34.4 g/dL (32.0-36.0); MEAN PLATELET VOLUME 9.6 fL (7.9-10.8); MONOCYTES # (AUTO) 0.8 10^3/uL (0.0-1.0); MONOCYTES % (AUTO) 8.8 %; NEUTROPHILS # (AUTO) 6.7 10^3/uL (1.5-6.6); NEUTROPHILS % (AUTO) 71.6 %; RED BLOOD COUNT 3.94 10^6/uL (4.20-5.40); RED CELL DISTRIBUTION WIDTH 12.9 % (12.0-15.0); UNCORRECTED WHITE BLOOD COUNT 9.3 x10^3/uL; WHITE BLOOD COUNT 9.3 x10^3/uL (4.8-10.8)
--- NOTE | 2017-05-20 13:21 | XRAY Report ---
EXAM: THORACIC SPINE RADIOGRAPHY EXAM DATE: 05/20/2017 01:02 PM. CLINICAL HISTORY: Back pain. COMPARISON: Chest x-ray 04/11/2016. TECHNIQUE: 2 views. FINDINGS: Alignment: Normal. No spondylolisthesis or scoliosis. Bones: Osteopenia with compression fracture of the mid thoracic spine, likely T6. Loss of height is o ne third anteriorly. No bony retropulsed fragments. Disks: Small thoracic osteophytes. Soft Tissues: Surgical clips in left upper quadrant. IMPRESSION: Osteopenia with age-indeterminate (although new since 2016) compression fracture, probabl y T6. Loss of height is near one third anteriorly. No bony retropulsed fragments. [facility] Referring Provider Line: [phone] SITE ID: [id number]
[2017-05-20 13:29] LABS: INR 2.1 (0.8-1.2); PT - PROTHROMBIN TIME 23.4 secs (9.9-12.6)
[2017-05-20 13:40] LABS: ALBUMIN/GLOBULIN RATIO 1.2 (1.0-2.2); BILIRUBIN,TOTAL 0.7 mg/dL (0.2-1.0); CALCIUM 8.8 mg/dL (8.5-10.3); POTASSIUM 3.7 mmol/L (3.5-5.0); TOTAL PROTEIN 6.4 g/dL (6.7-8.2)
[2017-05-20 15:34] VITALS: BP 112/57
== END 2017-05-20 15:18 | disposition home or self-care (01) ==
LOC: ED 11:39
DX: S22.050A Wedge compression fracture of T5-T6 vertebra, initial encounter for closed fracture (principal); M62.830 Muscle spasm of back; M54.6 Pain in thoracic spine; X58.XXXA Exposure to other specified factors, initial encounter; I45.10 Unspecified right bundle-branch block; R94.31 Abnormal electrocardiogram [ECG] [EKG]; I48.0 Paroxysmal atrial fibrillation; Z79.01 Long term (current) use of anticoagulants; I11.0 Hypertensive heart disease with heart failure; I50.9 Heart failure, unspecified; E03.9 Hypothyroidism, unspecified; J45.909 Unspecified asthma, uncomplicated; M19.90 Unspecified osteoarthritis, unspecified site; Z87.891 Personal history of nicotine dependence
CPT/HCPCS: 36415; 71020; 72070; 80053; 83690; 84484; 85025; 85610; 93005; 96374; 99283; 99284; J1170

== ENCOUNTER 2017-05-24 16:56 | Outpatient (CLI) | payer MEDICARE | END 2017-05-24 16:57 | disposition critical access hospital (66) | LOC: EMS 16:56 | PROVIDERS: ATTEND Surgery | DX: R51 Headache (principal); M54.5 Low back pain | CPT/HCPCS: A0425; A0429 ==

== ENCOUNTER 2017-05-24 17:25 | Emergency (ER) | payer MEDICARE ==
--- NOTE | 2017-05-24 18:30 | ED Physician Documentation ---
PD HPI BACK PAIN - Stated complaint Stated Complaint: BACK PX - Chief complaint Chief Complaint: Back Pain - History obtained from History obtained from: Patient, Family - History of Present Illness Timing - onset: Other (Recent diagnosis of back pain due to atraumatic T6 fracture, she is taking oxycodone and calcitonin. 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 : None HEENT: None Psych: None Musculoskeletal: Osteoarthritis Derm: None - Past Surgical History Past Surgical History: Yes General: Bowel surgery, Colonoscopy /SECTION REPAIRER: Dilation and currettage HEENT: Cataracts - Present Medications Home Medications: Ambulatory Orders Medication Instructions Recorded Confirmed Levothyroxine [Synthroid] 50 mcg PO MOTUTHFRSA 03/02/13 05/20/17 traZODone [Desyrel] 100 mg PO QPM 08/01/14 05/20/17 Fluticasone [Flonase] 1 spray JAYCEE BID 03/23/15 05/20/17 Potassium Chloride 20 meq PO DAILY 03/23/15 05/20/17 Albuterol Sulfate [Proair Hfa] 2 puffs INH Q4H PRN 01/22/16 05/20/17 Atorvastatin Calcium 60 mg PO QPM 01/22/16 05/20/17 Azelastine HCl [Astelin] 1 - 2 sprays NS BID PRN 01/22/16 05/20/17 Furosemide [Lasix] 40 mg PO DAILY 01/22/16 05/20/17 Levothyroxine [Synthroid] 100 mcg PO SUWE 01/22/16 05/20/17 Mometasone/Formoterol [Dulera 200 2 puffs INH BID 01/22/16 05/20/17 Mcg/5 Mcg Inhaler] Olopatadine HCl [Patanol] 1 drop LEFTEYE BID 01/22/16 05/20/17 oxyCODONE [Roxicodone] 5 mg PO DAILY PRN 01/22/16 05/20/17 Omeprazole 20 mg BID 04/11/16 05/20/17 Warfarin [Coumadin] 5 mg QPM 04/11/16 05/20/17 oxyCODONE [Roxicodone] 5 mg PO Q4-6H PRN #15 tablet 04/11/16 05/20/17 Acetaminophen 650 mg PO DAILY PM 12/05/16 05/20/17 Bacillus Coagulans [Probiotic] 2 each PO DAILY 12/05/16 05/20/17 Cetirizine [ZyrTEC] 10 mg PO ONCE 12/05/16 05/20/17 Glucosamine/D3/Boswellia Rachel 1 each PO DAILY 12/05/16 05/20/17 [Osteo Bi-Flex Tablet] Vitamin B Complex 1 each PO DAILY 12/05/16 05/20/17 Metoprolol Tartrate 5 mg PO DAILY 03/31/17 05/20/17 Calcitonin [Fortical] 1 sprays JAYCEE DAILY #1 bottle 05/20/17 Oxycodone HCl 10 mg PO Q4H PRN #20 tablet 05/20/17 - Allergies Allergies/Adverse Reactions: Allergies Allergy/AdvReac Type Severity Reaction Status Date / Time acetaminophen [From Percocet] Allergy Unknown Verified 05/24/17 17:34 aloe vera [From Vagisil] Allergy Unknown Verified 05/24/17 17:34 amitriptyline Allergy Unknown Verified 05/24/17 17:34 amoxicillin trihydrate * Allergy Respiratory Verified 05/24/17 17:34 [From Augmentin] benzocaine [From Vagisil] Allergy Unknown Verified 05/24/17 17:34 ipratropium Allergy Unknown Verified 05/24/17 17:34 medroxyprogesterone acetate * Allergy Unknown Verified 05/24/17 17:34 [From Provera] meperidine HCl * Allergy Unknown Verified 05/24/17 17:34 [From Demerol] mineral oil * [From Vagisil] Allergy Unknown Verified 05/24/17 17:34 morphine Allergy Emesis Verified 05/24/17 17:34 nortriptyline Allergy Unknown Verified 05/24/17 17:34 oxycodone HCl * Allergy Unknown Verified 05/24/17 17:34 [From Percocet] Penicillins Allergy Unknown Verified 05/24/17 17:34 potassium clavulanate * Allergy Respiratory Verified 05/24/17 17:34 [From Augmentin] promethazine HCl * Allergy Unknown Verified 05/24/17 17:34 [From Phenergan] resorcinol [From Vagisil] Allergy Unknown Verified 05/24/17 17:34 starch [From Vagisil] Allergy Unknown Verified 05/24/17 17:34 Sulfa (Sulfonamide Allergy Nausea Verified 05/24/17 17:34 Antibiotics) sulfamethoxazole Allergy Unknown Verified 05/24/17 17:34 [From Bactrim] tiotropium bromide * Allergy Unknown Verified 05/24/17 17:34 [From Spiriva with HandiHaler] trimethoprim [From Bactrim] Allergy Unknown Verified 05/24/17 17:34 vitamin E acetate * Allergy Unknown Verified 05/24/17 17:34 [From Vagisil] vitamins A and D * Allergy Unknown Verified 05/24/17 17:34 [From Vagisil] erythromycin base AdvReac Unknown Verified 05/24/17 17:34 BIND Allergy Intermediate Emesis Uncoded 05/24/17 17:34 - Social History Does the pt smoke?: No Smoking Status: Former smoker Does the pt drink ETOH?: No Does the pt have substance abuse?: No - Immunizations Immunizations are current?: Yes Immunizations: TDAP current <10years - POLST Patient has POLST: No PD ED PE NORMAL - Vitals Vital signs reviewed: Yes - General General: Alert and oriented X 3, Other ([place] with motion, comfortable at rest) - HEENT HEENT: PERRL, EOMI - Neck Neck: Supple, no meningeal sign, No bony TTP - Cardiac Cardiac: RRR, No murmur - Respiratory Respiratory: No respiratory distress, Clear bilaterally - Abdomen Abdomen: Normal bowel sounds, Soft, Non tender - Derm Derm: Normal color, Warm and dry - Extremities Extremities: No deformity, No edema, No calf tenderness / cord - Neuro Neuro: Alert and oriented X 3, Normal speech - Psych Psych: Normal mood, Normal affect Results - Vitals Vitals: Vital Signs - 24 hr 05/24/17 17:29 Temperature 36.7 C Heart Rate 61 Respiratory 16 Rate Blood Pressure 131/65 H O2 Saturation 97 Oxygen O2 Source Room air PD MEDICAL DECISION MAKING - ED course ED course: 81-year-old woman with uncontrolled pain from a T6 fracture but also significant side effects from her pain medication. I called [facility] and spoke with Dr. Gonzalez there, they do not really have anything to offer as far as respite nursing care or inpatient care given the diagnosis. Given our limitations I will give her a fentanyl patch here, no prescription to decrease her need for oxycodone and she will see her doctor tomorrow. Departure - Departure Disposition: 01 Home, Self Care Clinical Impression: Wedge compression fracture of T6 vertebra Qualifiers: Encounter type: initial encounter Fracture type: closed Qualified Code(s): S22.050A - Wedge compression fracture of T5-T6 vertebra, initial encounter for closed fracture Condition: Good Record reviewed to determine appropriate education?: Yes Instructions: ED Fx Comp Vertebral Comments: The pain patch should last for several days and hopefully decrease her need to take oxycodone. Follow-up with your doctor tomorrow. Your blood pressure was elevated today on check into the emergency department. This does not mean that you have hypertension, it is a common phenomenon to come to the emergency department and have elevated blood pressure. I recommend that she see your primary care physician within the week to have it rechecked when you are feeling better.
[2017-05-24] MEDS ORDERED: fentaNYL 25 MCG PATCH TOP STA (19:13)
[2017-05-24 19:31] VITALS: BP 125/55
== END 2017-05-24 19:39 | disposition home or self-care (01) ==
LOC: EDUNIT# → ED 17:25
DX: S22.050A Wedge compression fracture of T5-T6 vertebra, initial encounter for closed fracture (principal); X58.XXXA Exposure to other specified factors, initial encounter; M54.6 Pain in thoracic spine; R44.1 Visual hallucinations; T40.2X5A Adverse effect of other opioids, initial encounter; I11.0 Hypertensive heart disease with heart failure; I50.9 Heart failure, unspecified; E03.9 Hypothyroidism, unspecified; I48.91 Unspecified atrial fibrillation; Z79.01 Long term (current) use of anticoagulants; Z87.891 Personal history of nicotine dependence
CPT/HCPCS: 99283; 99284; A9270

== ENCOUNTER 2017-05-30 12:21 | Outpatient (CLI) | payer MEDICARE ==
[2017-05-30] MEDS ORDERED: IOPAMIDOL-300 100 ML VIAL ONE (14:16)
== END 2017-05-30 12:22 | disposition critical access hospital (66) ==
LOC: EMS 12:21
PROVIDERS: ATTEND Surgery
DX: M54.9 Dorsalgia, unspecified (principal); R06.02 Shortness of breath; R07.9 Chest pain, unspecified
CPT/HCPCS: A0425; A0429

== ENCOUNTER 2017-05-30 13:00 | Emergency (ER) | payer MEDICARE ==
[2017-05-30] MEDS ORDERED: fentaNYL 100 MCG/2 ML VIAL IVP STA ×2 (13:27→16:23)
--- NOTE | 2017-05-30 13:51 | ED Physician Documentation ---
History of Present Illness - Stated complaint Stated Complaint: BACK PX - Chief complaint Chief Complaint: Back Pain - Additonal information Additional information: hx from pt 81 female on coumadin states she has had sharp severe pain like a knife being twisted in her to her mid T spine region for a week, has been seen twice for same, xrays showed T spine age indet compression fx and pain was felt due to this first txed with oxycodone which caused delerium then fentanyl patches and even that is not controlling her pain now pain radiates into her chest no soa except 2/2 pain with breathing no abd pain no numbness weakness no fever Review of Systems Constitutional: denies: Fever, Chills Cardiac: reports: Chest pain / pressure Respiratory: denies: Dyspnea (2/2 pain) GI: denies: Abdominal Pain, Nausea, Vomiting Neurologic: denies: Focal weakness, Numbness Endocrine: reports: Easy bruising / bleeding PD PAST MEDICAL HISTORY - Past Medical History Cardiovascular: Congestive heart failure, Hypertension, Atrial fibrillation Respiratory: Asthma, Shortness of breath Neuro: None Endocrine/Autoimmune: HyPOthyroidism GI: None 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 : None HEENT: None Psych: None Musculoskeletal: Osteoarthritis Derm: None - Past Surgical History Past Surgical History: Yes General: Bowel surgery, Colonoscopy /STEAMBOAT INSPECTOR: Dilation and currettage HEENT: Cataracts - Present Medications Home Medications: Ambulatory Orders Medication Instructions Recorded Confirmed Levothyroxine [Synthroid] 50 mcg PO MOTUTHFRSA 03/02/13 05/20/17 traZODone [Desyrel] 100 mg PO QPM 08/01/14 05/20/17 Fluticasone [Flonase] 1 spray JAYCEE BID 03/23/15 05/20/17 Potassium Chloride 20 meq PO DAILY 03/23/15 05/20/17 Albuterol Sulfate [Proair Hfa] 2 puffs INH Q4H PRN 01/22/16 05/20/17 Atorvastatin Calcium 60 mg PO QPM 01/22/16 05/20/17 Azelastine HCl [Astelin] 1 - 2 sprays NS BID PRN 01/22/16 05/20/17 Furosemide [Lasix] 40 mg PO DAILY 01/22/16 05/20/17 Levothyroxine [Synthroid] 100 mcg PO SUWE 01/22/16 05/20/17 Mometasone/Formoterol [Dulera 200 2 puffs INH BID 01/22/16 05/20/17 Mcg/5 Mcg Inhaler] Olopatadine HCl [Patanol] 1 drop LEFTEYE BID 01/22/16 05/20/17 oxyCODONE [Roxicodone] 5 mg PO DAILY PRN 01/22/16 05/20/17 Omeprazole 20 mg BID 04/11/16 05/20/17 Warfarin [Coumadin] 5 mg QPM 04/11/16 05/20/17 oxyCODONE [Roxicodone] 5 mg PO Q4-6H PRN #15 tablet 04/11/16 05/20/17 Acetaminophen 650 mg PO DAILY PM 12/05/16 05/20/17 Bacillus Coagulans [Probiotic] 2 each PO DAILY 12/05/16 05/20/17 Cetirizine [ZyrTEC] 10 mg PO ONCE 12/05/16 05/20/17 Glucosamine/D3/Boswellia Rachel 1 each PO DAILY 12/05/16 05/20/17 [Osteo Bi-Flex Tablet] Vitamin B Complex 1 each PO DAILY 12/05/16 05/20/17 Metoprolol Tartrate 5 mg PO DAILY 03/31/17 05/20/17 Calcitonin [Fortical] 1 sprays JAYCEE DAILY #1 bottle 05/20/17 Oxycodone HCl 10 mg PO Q4H PRN #20 tablet 05/20/17 Alendronate [Fosamax] 70 mg PO Q7D #12 tablet 05/30/17 - Allergies Allergies/Adverse Reactions: Allergies Allergy/AdvReac Type Severity Reaction Status Date / Time acetaminophen [From Percocet] Allergy Unknown Verified 05/24/17 17:34 aloe vera [From Vagisil] Allergy Unknown Verified 05/24/17 17:34 amitriptyline Allergy Unknown Verified 05/24/17 17:34 amoxicillin trihydrate * Allergy Respiratory Verified 05/24/17 17:34 [From Augmentin] benzocaine [From Vagisil] Allergy Unknown Verified 05/24/17 17:34 ipratropium Allergy Unknown Verified 05/24/17 17:34 medroxyprogesterone acetate * Allergy Unknown Verified 05/24/17 17:34 [From Provera] meperidine HCl * Allergy Unknown Verified 05/24/17 17:34 [From Demerol] mineral oil * [From Vagisil] Allergy Unknown Verified 05/24/17 17:34 morphine Allergy Emesis Verified 05/24/17 17:34 nortriptyline Allergy Unknown Verified 05/24/17 17:34 oxycodone HCl * Allergy Unknown Verified 05/24/17 17:34 [From Percocet] Penicillins Allergy Unknown Verified 05/24/17 17:34 potassium clavulanate * Allergy Respiratory Verified 05/24/17 17:34 [From Augmentin] promethazine HCl * Allergy Unknown Verified 05/24/17 17:34 [From Phenergan] resorcinol [From Vagisil] Allergy Unknown Verified 05/24/17 17:34 starch [From Vagisil] Allergy Unknown Verified 05/24/17 17:34 Sulfa (Sulfonamide Allergy Nausea Verified 05/24/17 17:34 Antibiotics) sulfamethoxazole Allergy Unknown Verified 05/24/17 17:34 [From Bactrim] tiotropium bromide * Allergy Unknown Verified 05/24/17 17:34 [From Spiriva with HandiHaler] trimethoprim [From Bactrim] Allergy Unknown Verified 05/24/17 17:34 vitamin E acetate * Allergy Unknown Verified 05/24/17 17:34 [From Vagisil] vitamins A and D * Allergy Unknown Verified 05/24/17 17:34 [From Vagisil] erythromycin base AdvReac Unknown Verified 05/24/17 17:34 BIND Allergy Intermediate Emesis Uncoded 05/24/17 17:34 - Social History Does the pt smoke?: No Smoking Status: Former smoker Does the pt drink ETOH?: No Does the pt have substance abuse?: No - Immunizations Immunizations are current?: Yes Immunizations: TDAP current <10years - POLST Patient has POLST: No PD ED PE NORMAL - Vitals Vital signs reviewed: Yes - General General: Alert and oriented X 3 - HEENT HEENT: PERRL - Neck Neck: Supple, no meningeal sign - Cardiac Cardiac: RRR - Respiratory Respiratory: No respiratory distress, Clear bilaterally - Abdomen Abdomen: Soft, Non tender, Other (no pulsatile mass) - Back Back: Other (severe TTP across entire upper back and lateral right ribs s ecchymosis) - Derm Derm: Normal color, Other (no shingles rash) - Neuro Neuro: Alert and oriented X 3, No motor deficit, No sensory deficit Results - Vitals Vitals: Vital Signs - 24 hr 05/30/17 05/30/17 05/30/17 13:11 13:52 16:35 Temperature 36.2 C L Heart Rate 65 66 62 Respiratory 16 16 16 Rate Blood Pressure 132/97 H 159/67 H 139/62 H O2 Saturation 98 95 96 05/30/17 20:27 Temperature Heart Rate 73 Respiratory Rate Blood Pressure 114/69 O2 Saturation 93 Oxygen O2 Source Room air - Labs Labs: Laboratory Tests 05/30/17 05/30/17 13:41 17:00 Creatinine 0.9 Estimated GFR (MDRD) 60 L Urine Color YELLOW Urine Clarity CLEAR Urine pH 8.0 H Ur Specific [place] 1.010 Urine Protein NEGATIVE Urine Glucose (UA) NEGATIVE Urine Ketones NEGATIVE Urine Occult Blood NEGATIVE Urine Nitrite NEGATIVE Urine Bilirubin NEGATIVE Urine Urobilinogen 0.2 (NORMAL) Ur Leukocyte Esterase NEGATIVE Ur Microscopic Review NOT INDICATED Urine Culture Comments NOT INDICATED - Rads (name of study) CTA chest Radiology: See rad report (new severe T 6 body comminuted acute to subacute fx involving the anterior and middle corrtex corelate clinically, no dissection, bronchiectasis, very small lingular consolidation (no fever cough), small pleural effusions and atelectasis (hurts to breathe) 7 mm hazy nodule RUL rec [address], CBD 9 mm unchanged) CT AP Radiology: See rad report (no acute) PD MEDICAL DECISION MAKING - ED course ED course: pain shapr and now into chest so got CT chest after CT chest pt feveloped abd pain as well so then that was imaged no acute findings except further detail of T6 and confirmation it is acute consulted [facility] [place] Ordaz and they rec toradol and Jewit brace (all we had was TLSO so used that) and start biphosphonates and said if her pain remained so severe that she cried and screamed with every movement he would do surgery to stablize the bone with the goa of comfort but given her cardiac issues surgery is of course very high risk pt doing very well in brace moving much more comfortable - but too big - will dc but asked [employer] to deliver Jewitt brace Departure - Departure Disposition: 01 Home, Self Care Clinical Impression: Wedge compression fracture of T6 vertebra Qualifiers: Encounter type: subsequent encounter Fracture type: closed Fracture healing: with routine healing Qualified Code(s): S22.050D - Wedge compression fracture of T5-T6 vertebra, subsequent encounter for fracture with routine healing Condition: Good Instructions: ED Fx Comp Vertebral Follow-Up: Grzegorz Diamond MD [Primary Care Provider] - Prescriptions: Alendronate [Fosamax] 70 mg PO Q7D #12 tablet Comments: Wear the brace at all times except to bathe - it really seems to be helping the pain I will try and have a more comfortable brace delivered to your home Continue your pain medications as prescribed by your PMD And start the medication for osteoporosis that the airport operations specialist recommended - but check with Dr Diamond first to make sure it doesn't interact with the nasal spray he prescribed And lastly the radiologist saw a nodule in your lung and recommend a repeat CT of your chest in 3 months Discharge Date/Time: 05/30/17 20:27
[2017-05-30] MEDS ORDERED: SODIUM CHLORIDE FLUSH 0.9% 10 ML SYRINGE IVP ONE (13:52)
[2017-05-30] MEDS ORDERED: fentaNYL 100 MCG/2 ML VIAL ONE ×2 (13:52→16:35)
[2017-05-30 13:58] LABS: CREATININE 0.9 mg/dL (0.4-1.0)
[2017-05-30] MEDS ORDERED: IOPAMIDOL-300 100 ML VIAL IVP ONE (14:38)
[2017-05-30] MEDS ORDERED: ACETAMINOPHEN 1,000 MG/100 ML 100 ML IV STA (15:11)
[2017-05-30] MEDS ORDERED: ACETAMINOPHEN 1,000 MG/100 ML 100 ML IV ONE (15:35)
--- NOTE | 2017-05-30 15:35 | CT Preliminary Report ---
Exam: CT Chest Angio (AORTA) IMPRESSION: 1. New severe T6 vertebral body comminuted acute to subacute appearing compression fracture which inv olves the anterior and middle cortex. Correlate clinically. 2. No evidence for aortic aneurysm or dissection. 3. Mild bronchiectasis seen in all the lobes. New very small lingular consolidation extending to the left hilum. New small bilateral pleural effusions and bibasilar atelectasis. New mild right base post erior lower lobe consolidation, could be atelectasis however pneumonia not excluded. Small nodular billings zy opacity is new in the right upper lobe axial image 50, measures 7 mm. This could be infectious/inf lammatory versus malignant. If there is low risk for malignancy, recommend a 6 month follow-up chest CT. If there is high risk for malignancy, recommend a three-month follow-up chest CT. 4. Mildly dilated common duct measuring 9 mm, appears unchanged. 5. See the remainder of the findings as above. [facility] SITE ID: [id number]
--- NOTE | 2017-05-30 15:38 | CT Report ---
EXAM: CT ANGIOGRAM CHEST AND ABDOMEN EXAM DATE: 05/30/2017 02:39 PM. CLINICAL HISTORY: Severe intractable back pain now rad to chest . COMPARISONS: None. TECHNIQUE: Routine axial helical CT angiographic imaging was performed through the chest, abdomen, and pelvis. I V Contrast: 100 mL Isovue-300. Reconstructions: Coronal, sagittal, and 3D MIP reconstructions of the aorta. In accordance with CT protocol optimization, one or more of the following dose reduction techniques w ere utilized for this exam: automated exposure control, adjustment of mA and/or KV based on patient s ize, or use of iterative reconstructive technique. FINDINGS: Vascular Structures: No thoracic aortic aneurysm or dissection. Mild to moderate calcified plaque at the thoracic aorta.. Moderate atherosclerotic disease with calcified and noncalcified plaque at the p roximal left subclavian artery without definite hemodynamically significant stenosis. Patent proximal left common carotid artery and innominate artery. No evidence for pulmonary emboli. Patent celiac artery. Calcified plaque narrows the proximal superior mesenteric artery at the origin where near 50% stenosis could be present, could be hemodynamically significant. Greater than 50% hemo dynamically significant stenosis suspected at the origin and proximal right renal artery near 50% demetrius nosis suspected at the origin of the left renal artery. Both renal arteries appear patent. There is s ymmetric enhancement of both kidneys. Marked atherosclerotic Calcification of the abdominal aorta and iliac arteries. No evidence for abdom inal aortic aneurysm or dissection. Lungs/Pleura: Mild bronchiectasis seen in all the lobes. New very small lingular consolidation extend ing to the left hilum. New small bilateral pleural effusions and bibasilar atelectasis. New mild righ t base posterior lower lobe consolidation, could be atelectasis however pneumonia not excluded. Small nodular hazy opacity is new in the right upper lobe axial image 50, measures 7 mm Mediastinum: Borderline cardiomegaly. Coronary artery calcification. Minimal pericardial effusion. No mediastinal or hilar lymphadenopathy. Liver: Mild liver surface irregularity as can be seen with cirrhosis. Gallbladder: Normal. Bile ducts: Mildly dilated common duct measuring 9 mm, appears unchanged. There are pancreas: Atrophi c. Spleen: Unremarkable. Adrenals: Normal. Kidneys: There appears to be mild bilateral renal atrophy. No hydronephrosis. Bowel: No evidence for bowel obstruction. No acute bowel findings are seen. Moderate stool in the col on. No free fluid or free air. There appears to be ventral hernia repair. Bones: New severe T6 vertebral body comminuted acute to subacute appearing compression fracture which involves the anterior and middle cortex. Correlate clinically. Moderate posterior endplate osteophyt es narrow the anterior thecal sac at T6-T7. IMPRESSION: 1. New severe T6 vertebral body comminuted acute to subacute appearing compression fracture which inv olves the anterior and middle cortex. Correlate clinically. 2. No evidence for aortic aneurysm or dissection. 3. Mild bronchiectasis seen in all the lobes. New very small lingular consolidation extending to the left hilum. New small bilateral pleural effusions and bibasilar atelectasis. New mild right base post erior lower lobe consolidation, could be atelectasis however pneumonia not excluded. Small nodular billings zy opacity is new in the right upper lobe axial image 50, measures 7 mm. This could be infectious/inf lammatory versus malignant. If there is low risk for malignancy, recommend a 6 month follow-up chest CT. If there is high risk for malignancy, recommend a three-month follow-up chest CT. 4. Mildly dilated common duct measuring 9 mm, appears unchanged. 5. See the remainder of the findings as above. [facility] Referring Provider Line: [phone] SITE ID: [id number]
[2017-05-30 17:06] LABS: BILIRUBIN,URINE NEGATIVE (NEGATIVE)
[2017-05-30 17:09] LABS: UA CHARGE (STRIP ONLY) YES; UR CULTURE IF IND NOT INDICATED
[2017-05-30] MEDS ORDERED: KETOROLAC 60 MG/2 ML VIAL IVP STA (17:30)
--- NOTE | 2017-05-30 18:29 | CT Preliminary Report ---
Exam: CT Abdomen/Pelvis W/O IMPRESSION: Chronic and incidental findings. No acute disease. [facility] SITE ID: [id number]
--- NOTE | 2017-05-30 18:31 | CT Report ---
EXAM: CT ABDOMEN AND PELVIS EXAM DATE: 05/30/2017 06:04 PM. CLINICAL HISTORY: Now with severe llq pain. COMPARISONS: 05/25/2014. TECHNIQUE: Routine helical CT imaging was performed through the abdomen and pelvis. IV contrast: None . Residual contrast present from previous CTA. Enteric contrast: No. Reconstructions: Coronal and sag ittal. In accordance with CT protocol optimization, one or more of the following dose reduction techniques w ere utilized for this exam: automated exposure control, adjustment of mA and/or KV based on patient s ize, or use of iterative reconstructive technique. FINDINGS: Lung Bases: Bibasilar atelectasis or scarring with small amount of consolidation in right posterior s ulcus. No effusion. Liver: Normal. No masses. Gallbladder/Bile Ducts: Unremarkable. Spleen: Normal. Pancreas: Atrophic. Adrenal Glands: Normal. Kidneys: Normal. No masses or hydronephrosis. Peritoneal Cavity/Bowel: Surgical clips in anterior abdomen near the abdominal wall. Moderate amount of stool. No free fluid, free air or adenopathy. No masses or acute inflammatory process. The appendi x is well visualized and normal. Pelvic Organs: Surgical staple line at the rectosigmoid level. The bladder and visualized pelvic orga ns are within normal limits. Vasculature: No aneurysms or other significant abnormality. Bones: No significant abnormality. Other: None. IMPRESSION: Chronic and incidental findings. No acute disease. [facility] Referring Provider Line: [phone] SITE ID: [id number]
[2017-05-30] MEDS ORDERED: KETOROLAC 30 MG/ML VIAL ONE (19:26)
[2017-05-30 20:28] VITALS: BP 114/69
== END 2017-05-30 20:27 | disposition home or self-care (01) ==
LOC: EDUNIT# → ED 13:00
DX: S22.050D Wedge compression fracture of T5-T6 vertebra, subsequent encounter for fracture with routine healing (principal); X58.XXXD Exposure to other specified factors, subsequent encounter; I11.0 Hypertensive heart disease with heart failure; I50.9 Heart failure, unspecified; I48.91 Unspecified atrial fibrillation; E03.9 Hypothyroidism, unspecified; Z79.01 Long term (current) use of anticoagulants; Z87.891 Personal history of nicotine dependence
CPT/HCPCS: 36415; 51701; 71275; 74176; 81003; 82565; 96374; 96375; 96376; 99284; J0131; Q9967; 81001; 87086

== ENCOUNTER 2017-06-10 21:11 | Emergency (ER) | payer MEDICARE ==
[2017-06-10 21:21] VITALS: BP 134/71
--- NOTE | 2017-06-10 21:45 | ED Physician Documentation ---
PD HPI LOWER EXT INJURY - Stated complaint Stated Complaint: FOOT PX - Chief complaint Chief Complaint: Ext Problem - History obtained from History obtained from: Patient - History of Present Illness PD HPI LOW EXT INJURY LOCATION: Left, Ankle Type of injury: Other (unknown) Where injury occurred: Home Timing - onset: Yesterday Timing - details: Abrupt onset, Still present Worsened by: Palpating Associated symptoms: Swelling, Discolored. No: Weakness Similar symptoms before: Has not had sx before Recently seen: Not recently seen - Additional information Additional information: Patient is an 81 year old female with multiple co-morbidities who is presenting to the emergency department for left ankle pain and swelling. patient states that she noticed it when she got up today and it has become progressively worse. Patient states that she does not remember any other trauma. Review of Systems Constitutional: denies: Fever, Chills Eyes: denies: Decreased vision, Photophobia Ears: denies: Ear pain, Drainage/discharge Nose: denies: Epistaxis Throat: denies: Sore throat Cardiac: denies: Chest pain / pressure, Calf pain Respiratory: denies: Dyspnea, Cough GI: denies: Abdominal Pain, Nausea, Vomiting : denies: Hematuria Skin: reports: Rash Musculoskeletal: reports: Extremity pain, Extremity swelling Neurologic: denies: Generalized weakness, Focal weakness, Numbness, Difficulty speaking Immunocompromised: denies: Immunocompromised PD PAST MEDICAL HISTORY - Past Medical History Past Medical History: Yes Cardiovascular: Congestive heart failure, Hypertension, Atrial fibrillation Respiratory: Asthma, Shortness of breath Neuro: None Endocrine/Autoimmune: HyPOthyroidism GI: None 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 : None HEENT: None Psych: None Musculoskeletal: Osteoarthritis Derm: None - Past Surgical History Past Surgical History: Yes General: Bowel surgery, 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: Dilation and currettage HEENT: Cataracts - Present Medications Home Medications: Ambulatory Orders Medication Instructions Recorded Confirmed Levothyroxine [Synthroid] 50 mcg PO MOTUTHFRSA 03/02/13 06/10/17 traZODone [Desyrel] 100 mg PO QPM 08/01/14 06/10/17 Fluticasone [Flonase] 1 spray JAYCEE BID 03/23/15 06/10/17 Potassium Chloride 20 meq PO DAILY 03/23/15 06/10/17 Albuterol Sulfate [Proair Hfa] 2 puffs INH Q4H PRN 01/22/16 06/10/17 Atorvastatin Calcium 60 mg PO QPM 01/22/16 06/10/17 Azelastine HCl [Astelin] 1 - 2 sprays NS BID PRN 01/22/16 06/10/17 Furosemide [Lasix] 40 mg PO DAILY 01/22/16 06/10/17 Levothyroxine [Synthroid] 100 mcg PO SUWE 01/22/16 06/10/17 Mometasone/Formoterol [Dulera 200 2 puffs INH BID 01/22/16 06/10/17 Mcg/5 Mcg Inhaler] Olopatadine HCl [Patanol] 1 drop LEFTEYE BID 01/22/16 06/10/17 oxyCODONE [Roxicodone] 5 mg PO DAILY PRN 01/22/16 06/10/17 Omeprazole 20 mg BID 04/11/16 06/10/17 Warfarin [Coumadin] 5 mg QPM 04/11/16 06/10/17 oxyCODONE [Roxicodone] 5 mg PO Q4-6H PRN #15 tablet 04/11/16 06/10/17 Acetaminophen 650 mg PO DAILY PM 12/05/16 06/10/17 Bacillus Coagulans [Probiotic] 2 each PO DAILY 12/05/16 06/10/17 Cetirizine [ZyrTEC] 10 mg PO ONCE 12/05/16 06/10/17 Glucosamine/D3/Boswellia Rachel 1 each PO DAILY 12/05/16 06/10/17 [Osteo Bi-Flex Tablet] Vitamin B Complex 1 each PO DAILY 12/05/16 06/10/17 Metoprolol Tartrate 5 mg PO DAILY 03/31/17 06/10/17 Calcitonin [Fortical] 1 sprays JAYCEE DAILY #1 bottle 05/20/17 06/10/17 Oxycodone HCl 10 mg PO Q4H PRN #20 tablet 05/20/17 06/10/17 Alendronate [Fosamax] 70 mg PO Q7D #12 tablet 05/30/17 06/10/17 - Allergies Allergies/Adverse Reactions: Allergies Allergy/AdvReac Type Severity Reaction Status Date / Time acetaminophen [From Percocet] Allergy Unknown Verified 05/24/17 17:34 aloe vera [From Vagisil] Allergy Unknown Verified 05/24/17 17:34 amitriptyline Allergy Unknown Verified 05/24/17 17:34 amoxicillin trihydrate * Allergy Respiratory Verified 05/24/17 17:34 [From Augmentin] benzocaine [From Vagisil] Allergy Unknown Verified 05/24/17 17:34 ipratropium Allergy Unknown Verified 05/24/17 17:34 medroxyprogesterone acetate * Allergy Unknown Verified 05/24/17 17:34 [From Provera] meperidine HCl * Allergy Unknown Verified 05/24/17 17:34 [From Demerol] mineral oil * [From Vagisil] Allergy Unknown Verified 05/24/17 17:34 morphine Allergy Emesis Verified 05/24/17 17:34 nortriptyline Allergy Unknown Verified 05/24/17 17:34 oxycodone HCl * Allergy Unknown Verified 05/24/17 17:34 [From Percocet] Penicillins Allergy Unknown Verified 05/24/17 17:34 potassium clavulanate * Allergy Respiratory Verified 05/24/17 17:34 [From Augmentin] promethazine HCl * Allergy Unknown Verified 05/24/17 17:34 [From Phenergan] resorcinol [From Vagisil] Allergy Unknown Verified 05/24/17 17:34 starch [From Vagisil] Allergy Unknown Verified 05/24/17 17:34 Sulfa (Sulfonamide Allergy Nausea Verified 05/24/17 17:34 Antibiotics) sulfamethoxazole Allergy Unknown Verified 05/24/17 17:34 [From Bactrim] tiotropium bromide * Allergy Unknown Verified 05/24/17 17:34 [From Spiriva with HandiHaler] trimethoprim [From Bactrim] Allergy Unknown Verified 05/24/17 17:34 vitamin E acetate * Allergy Unknown Verified 05/24/17 17:34 [From Vagisil] vitamins A and D * Allergy Unknown Verified 05/24/17 17:34 [From Vagisil] erythromycin base AdvReac Unknown Verified 05/24/17 17:34 BIND Allergy Intermediate Emesis Uncoded 05/24/17 17:34 - Social History Does the pt smoke?: No Smoking Status: Never smoker Does the pt drink ETOH?: No Does the pt have substance abuse?: No - Immunizations Immunizations are current?: Yes Immunizations: TDAP current <10years - POLST Patient has POLST: No PD ED PE NORMAL - General General: Alert and oriented X 3, No acute distress - HEENT HEENT: Atraumatic, PERRL - Neck Neck: No bony TTP - Cardiac Cardiac: RRR, No murmur - Respiratory Respiratory: No respiratory distress - Abdomen Abdomen: Non distended - Neuro Neuro: Alert and oriented X 3, No motor deficit, No sensory deficit, Normal speech - Psych Psych: Normal mood, Normal affect PD ED PE EXPANDED - HEENT HEENT: Dry mucous membranes - Back Back: Vertebral tenderness (thoracic vertebral tenderness to palpation) - Extremities Extremities: Left ankle (tenderness swelling and ecchymosis of left ankle) Results - Vitals Vitals: Vital Signs - 24 hr 06/10/17 21:15 Temperature 36.0 C L Heart Rate 66 Respiratory 18 Rate Blood Pressure 134/71 H O2 Saturation 98 Oxygen O2 Source Room air - Rads (name of study) ankle x-ray Radiology: Final report received (osteopenia, no acute fracture or dislocation) PD MEDICAL DECISION MAKING - ED course Complexity details: reviewed old records, reviewed results, re-evaluated patient , considered differential, d/w patient, d/w family ED course: Patient was seen and examined at bedside. Imaging was ordered. when patient returned from imaging the results were reviewed. there was no acute fracture or dislocation but there was significant swelling and ecchymosis. patient was placed in an air cast. patient required no further inpatient work up at this time and was stable for discharge with outpatient follow up. Departure - Departure Disposition: 01 Home, Self Care Clinical Impression: Moderate ankle sprain Condition: Good Instructions: ED Splint Ankle Stirrup Follow-Up: Grzegorz Diamond MD [Primary Care Provider] - Within 3 Days (if symptoms persist) Comments: Your diagnostics today were within normal limits. there was no acute fracture or dislocation. You should continue to ice your ankle, wear a brace for comfort and try to keep it elevated. You should follow up with your pmd if your symptoms persist. You may return to the emergency department at any time for new, worsening or uncontrollable symptoms.
--- NOTE | 2017-06-10 22:43 | XRAY Preliminary Report ---
Exam: XR Ankle 3 View LT IMPRESSION: 1. Osteopenia. No acute fracture or dislocation seen. [facility] SITE ID: [id number]
--- NOTE | 2017-06-10 22:46 | XRAY Report ---
EXAM: LEFT ANKLE RADIOGRAPHY EXAM DATE: 06/10/2017 10:08 PM. CLINICAL HISTORY: Ankle pain, ecchymosis. COMPARISON: None. TECHNIQUE: 3 views. FINDINGS: Bones: Osteopenia. No acute fracture seen. Plantar calcaneal osteophyte. Joints: No dislocation. Ankle mortise appears intact. No ankle joint effusion. Soft Tissues: Soft tissue swelling. Vascular calcifications. IMPRESSION: 1. Osteopenia. No acute fracture or dislocation seen. [facility] Referring Provider Line: [phone] SITE ID: [id number]
== END 2017-06-10 22:59 | disposition home or self-care (01) ==
LOC: ED 21:11
DX: S93.402A Sprain of unspecified ligament of left ankle, initial encounter (principal); X58.XXXA Exposure to other specified factors, initial encounter; I11.0 Hypertensive heart disease with heart failure; I50.9 Heart failure, unspecified; I48.91 Unspecified atrial fibrillation; Z79.01 Long term (current) use of anticoagulants; J45.909 Unspecified asthma, uncomplicated; E03.9 Hypothyroidism, unspecified; M19.90 Unspecified osteoarthritis, unspecified site
CPT/HCPCS: 99283

== ENCOUNTER 2017-06-11 12:11 | Outpatient (CLI) | payer MEDICARE | END 2017-06-11 12:12 | disposition critical access hospital (66) | LOC: EDSEX → EMS 12:11 | PROVIDERS: ATTEND Surgery | DX: S01.01XA Laceration without foreign body of scalp, initial encounter (principal); S41.112A Laceration without foreign body of left upper arm, initial encounter; S41.111A Laceration without foreign body of right upper arm, initial encounter; W10.9XXA Fall (on) (from) unspecified stairs and steps, initial encounter; Y92.019 Unspecified place in single-family (private) house as the place of occurrence of the external cause | CPT/HCPCS: A0425; A0429 ==

== ENCOUNTER 2017-06-11 12:37 | Emergency (ER) | payer MEDICARE ==
[2017-06-11] MEDS ORDERED: SODIUM CHLORIDE FLUSH 0.9% 10 ML SYRINGE IVP ONE ×3 (12:48→15:20)
--- NOTE | 2017-06-11 12:52 | ED Physician Documentation ---
PD HPI HEAD INJURY - Stated complaint Stated Complaint: GLF - Chief complaint Chief Complaint: Neuro - History obtained from History obtained from: Patient - History of Present Illness Mechanism of head injury: Fell Where head injury occurred: Home Timing - onset: Today Location of injury: Front, Top Associated symptoms: Neck pain (some with ROM). No: LOC, AMS, Nausea / vomiting Symptoms worsen with: Palpation Contributing factors: Anticoagulated. No: Intoxicated Recently seen: Emergency Dept (yesterday for twisting of the ankle and fall, with aircast on ankle. She says she lost balance and fell again today, striking hand and right arm and top of head, with small laceration.) Review of Systems Constitutional: denies: Fever, Chills Nose: denies: Rhinorrhea / runny nose, Congestion Throat: denies: Sore throat Cardiac: denies: Palpitations Respiratory: denies: Cough GI: denies: Abdominal Pain, Vomiting, Diarrhea, Bloody / black stool : denies: Dysuria, Frequency Musculoskeletal: reports: Neck pain, Back pain (mid thoracic area which has been present for months due to prior compression fracture.), Extremity pain ( left hand mainly) PD PAST MEDICAL HISTORY - Past Medical History Cardiovascular: Congestive heart failure, Hypertension, Atrial fibrillation Respiratory: Asthma, Shortness of breath Neuro: None Endocrine/Autoimmune: HyPOthyroidism GI: None 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 : None HEENT: None Psych: None Musculoskeletal: Osteoarthritis Derm: None - Past Surgical History Past Surgical History: Yes General: Bowel surgery, Colonoscopy /DROPHAMMER OPERATOR: Dilation and currettage HEENT: Cataracts - Present Medications Home Medications: Ambulatory Orders Medication Instructions Recorded Confirmed Levothyroxine [Synthroid] 50 mcg PO MOTUTHFRSA 03/02/13 06/11/17 traZODone [Desyrel] 100 mg PO QPM 08/01/14 06/11/17 Fluticasone [Flonase] 1 spray JAYCEE BID 03/23/15 06/11/17 Potassium Chloride 20 meq PO DAILY 03/23/15 06/11/17 Albuterol Sulfate [Proair Hfa] 2 puffs INH Q4H PRN 01/22/16 06/11/17 Atorvastatin Calcium 60 mg PO QPM 01/22/16 06/11/17 Azelastine HCl [Astelin] 1 - 2 sprays NS BID PRN 01/22/16 06/11/17 Furosemide [Lasix] 40 mg PO DAILY 01/22/16 06/11/17 Levothyroxine [Synthroid] 100 mcg PO SUWE 01/22/16 06/11/17 Mometasone/Formoterol [Dulera 200 2 puffs INH BID 01/22/16 06/11/17 Mcg/5 Mcg Inhaler] Olopatadine HCl [Patanol] 1 drop LEFTEYE BID 01/22/16 06/11/17 oxyCODONE [Roxicodone] 5 mg PO DAILY PRN 01/22/16 06/11/17 Omeprazole 20 mg BID 04/11/16 06/11/17 Warfarin [Coumadin] 5 mg QPM 04/11/16 06/11/17 oxyCODONE [Roxicodone] 5 mg PO Q4-6H PRN #15 tablet 04/11/16 06/11/17 Acetaminophen 650 mg PO DAILY PM 12/05/16 06/11/17 Bacillus Coagulans [Probiotic] 2 each PO DAILY 12/05/16 06/11/17 Cetirizine [ZyrTEC] 10 mg PO ONCE 12/05/16 06/11/17 Glucosamine/D3/Boswellia Rachel 1 each PO DAILY 12/05/16 06/11/17 [Osteo Bi-Flex Tablet] Vitamin B Complex 1 each PO DAILY 12/05/16 06/11/17 Metoprolol Tartrate 5 mg PO DAILY 03/31/17 06/11/17 Calcitonin [Fortical] 1 sprays JAYCEE DAILY #1 bottle 05/20/17 06/11/17 Oxycodone HCl 10 mg PO Q4H PRN #20 tablet 05/20/17 06/11/17 Alendronate [Fosamax] 70 mg PO Q7D #12 tablet 05/30/17 06/11/17 - Allergies Allergies/Adverse Reactions: Allergies Allergy/AdvReac Type Severity Reaction Status Date / Time acetaminophen [From Percocet] Allergy Unknown Verified 05/24/17 17:34 aloe vera [From Vagisil] Allergy Unknown Verified 05/24/17 17:34 amitriptyline Allergy Unknown Verified 05/24/17 17:34 amoxicillin trihydrate * Allergy Respiratory Verified 05/24/17 17:34 [From Augmentin] benzocaine [From Vagisil] Allergy Unknown Verified 05/24/17 17:34 ipratropium Allergy Unknown Verified 05/24/17 17:34 medroxyprogesterone acetate * Allergy Unknown Verified 05/24/17 17:34 [From Provera] meperidine HCl * Allergy Unknown Verified 05/24/17 17:34 [From Demerol] mineral oil * [From Vagisil] Allergy Unknown Verified 05/24/17 17:34 morphine Allergy Emesis Verified 05/24/17 17:34 nortriptyline Allergy Unknown Verified 05/24/17 17:34 oxycodone HCl * Allergy Unknown Verified 05/24/17 17:34 [From Percocet] Penicillins Allergy Unknown Verified 05/24/17 17:34 potassium clavulanate * Allergy Respiratory Verified 05/24/17 17:34 [From Augmentin] promethazine HCl * Allergy Unknown Verified 05/24/17 17:34 [From Phenergan] resorcinol [From Vagisil] Allergy Unknown Verified 05/24/17 17:34 starch [From Vagisil] Allergy Unknown Verified 05/24/17 17:34 Sulfa (Sulfonamide Allergy Nausea Verified 05/24/17 17:34 Antibiotics) sulfamethoxazole Allergy Unknown Verified 05/24/17 17:34 [From Bactrim] tiotropium bromide * Allergy Unknown Verified 05/24/17 17:34 [From Spiriva with HandiHaler] trimethoprim [From Bactrim] Allergy Unknown Verified 05/24/17 17:34 vitamin E acetate * Allergy Unknown Verified 05/24/17 17:34 [From Vagisil] vitamins A and D * Allergy Unknown Verified 05/24/17 17:34 [From Vagisil] erythromycin base AdvReac Unknown Verified 05/24/17 17:34 BIND Allergy Intermediate Emesis Uncoded 05/24/17 17:34 - Social History Does the pt smoke?: No Smoking Status: Never smoker Does the pt drink ETOH?: No Does the pt have substance abuse?: No - Immunizations Immunizations are current?: Yes Immunizations: TDAP current <10years - POLST Patient has POLST: No PD ED PE NORMAL - Vitals Vital signs reviewed: Yes - General General: Alert and oriented X 3, Well developed/nourished, Other (in pain of left hand mostly due to the skin tear with movement and cleansing of the wound. ) - HEENT HEENT: Other (abrasion anterior top of head with small lac about 1 cm or less, without bleeding at this time. Edges close together. Will use Dermabond. ) - Neck Neck: Supple, no meningeal sign, No adenopathy, Other (some pain with ROM of the neck but no obvious deformity and has good spontaneous ROM, wihtout guarding per se. ) - Cardiac Cardiac: RRR, No murmur - Respiratory Respiratory: Clear bilaterally, Other (some chestwall tenderness left posterolateral without obvious deformity. She says she has known compression injury T6 or 7 and had usual pain there. ) - Abdomen Abdomen: Soft, Non tender - Back Back: No CVA TTP, No spinal TTP - Derm Derm: Normal color, Warm and dry - Extremities Extremities: Other (left hand with contusion and some skin tearing that is partial thickness, thin skin without uncovering deep structures. Right forearm with thin skin tear as well, as does right lateral lower leg. No bony tenderness in those areas. 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, No motor deficit, No sensory deficit, Normal speech - Psych Psych: Normal mood, Normal affect Results - Vitals Vitals: Vital Signs - 24 hr 06/11/17 06/11/17 12:38 16:39 Temperature 36.9 C 36.7 C Heart Rate 68 60 Respiratory 18 12 Rate Blood Pressure 112/58 L 103/59 L O2 Saturation 98 95 Oxygen O2 Source Room air - Labs Labs: Laboratory Tests 06/11/17 06/11/17 12:52 14:53 Whole Blood INR 3.9 H Sodium 134 L Potassium 3.6 Chloride 102 Carbon Dioxide 26 Anion Gap 6.0 BUN 13 Creatinine 0.9 Estimated GFR (MDRD) 60 L Glucose 98 Calcium 8.4 L Magnesium 1.7 Total Bilirubin 1.0 AST 37 ALT 18 Alkaline Phosphatase 94 Total Protein 6.1 L Albumin 3.1 L Globulin 3.0 Albumin/Globulin Ratio 1.0 Lipase 14 L PD MEDICAL DECISION MAKING - ED course Complexity details: considered differential (new fall again today. Has very thin skin tears of left hand and right arm, right leg. Nursing placed steri- strips and dressings. Too thin for sutures. No new injuries demonstrated on CTs and xrays. ), d/w patient Departure - Departure Disposition: 01 Home, Self Care Clinical Impression: Multiple lacerations, Anticoagulant long-term use Fall from slip, trip, or stumble Qualifiers: Encounter type: initial encounter Qualified Code(s): W01.0XXA - Fall on same level from slipping, tripping and stumbling without subsequent striking against object, initial encounter Scalp laceration Qualifiers: Encounter type: initial encounter Qualified Code(s): S01.01XA - Laceration without foreign body of scalp, initial encounter Clinical Impression: (Ruled Out): Intracranial bleeding Condition: Stable Record reviewed to determine appropriate education?: Yes Instructions: ED Laceration All Follow-Up: Grzegorz Diamond MD [Primary Care Provider] - Comments: Continue usual medications. Keep the dressings on the lacerations until follow- up on Sunday. This will last disturb the loose skin that has been taped down. Follow-up in the office on Sunday as planned for dressing change and wound check. Your provider may try to initiate follow-up treatments at the wound care clinic here at the hospital depending upon how well they are healing. Your Coumadin level was elevated at 3.9 today so hold tonight's dose and then continue as normal after that. Discharge Date/Time: 06/11/17 16:51
[2017-06-11] MEDS ORDERED: MORPHINE 2 MG/ML SYRINGE IVP STA (13:08)
[2017-06-11] MEDS ORDERED: ACETAMINOPHEN 325 MG TABLET PO STA (13:09)
[2017-06-11] MEDS ORDERED: ACETAMINOPHEN 325 MG TABLET PO ONE (13:22)
[2017-06-11 13:29] LABS: CALCIUM 8.4 mg/dL (8.5-10.3); CREATININE 0.9 mg/dL (0.4-1.0); MAGNESIUM 1.7 mg/dL (1.7-2.8); POTASSIUM 3.6 mmol/L (3.5-5.0); TOTAL PROTEIN 6.1 g/dL (6.7-8.2)
--- NOTE | 2017-06-11 13:56 | CT Preliminary Report ---
Exam: CT Head W/O IMPRESSION: 1. No acute intracranial abnormality or change. Chronic intracranial findings. No hemorrhage or space -occupying lesion. 2. Left lateral scalp swelling. No calvarial fracture. [facility] SITE ID: [id number]
--- NOTE | 2017-06-11 13:58 | CT Report ---
EXAM: CT HEAD EXAM DATE: 06/11/2017 01:38 PM. CLINICAL HISTORY: Fall last night, struck head. COMPARISON: Head CT 03/31/2017. TECHNIQUE: Multiaxial CT images were obtained from the foramen magnum to the vertex. IV contrast: Non e. Reformats: Coronal. In accordance with CT protocol optimization, one or more of the following dose reduction techniques w ere utilized for this exam: automated exposure control, adjustment of mA and/or KV based on patient s ize, or use of iterative reconstructive technique. FINDINGS: Parenchyma: No intraparenchymal hemorrhage. No focal mass effect, midline shift, or CT findings of ac pamunkey infarction. Stable prominent perivascular space left temporal region by the basal ganglia and hyp odense appearance of left external capsule. Similar mild periventricular white matter hypodensities c onsistent with chronic ischemic microangiopathy. Major-white differentiation is otherwise distinct. Extraaxial Spaces: Unchanged. No subdural or epidural collections identified. Empty sella again seen. Ventricles: Stable mildly prominent, in keeping with central volume loss. Sinuses: Imaged paranasal sinuses, orbits, and mastoids show no significant abnormality. Bones: No evidence of fracture or calvarial defect. Other: Left lateral scalp swelling. IMPRESSION: 1. No acute intracranial abnormality or change. Chronic intracranial findings. No hemorrhage or space -occupying lesion. 2. Left lateral scalp swelling. No calvarial fracture. [facility] Referring Provider Line: [phone] SITE ID: [id number]
--- NOTE | 2017-06-11 14:02 | CT Preliminary Report ---
Exam: CT Cervical Spine W/O IMPRESSION: 1. No acute fracture or dislocation of the cervical spine. 2. Similar multilevel diskogenic disease and facet arthrosis, including mild grade 1 degenerative ant erolisthesis C4 on C5. [facility] SITE ID: [id number]
--- NOTE | 2017-06-11 14:05 | CT Report ---
EXAM: CT CERVICAL SPINE WITHOUT CONTRAST DATE: 06/11/2017 01:38 PM HISTORY: Fall last night, neck pain. COMPARISONS: CT cervical spine 05/25/2014. TECHNIQUE: Thin-section axial images were acquired of the cervical spine without contrast. Post-proce ssing: Coronal and sagittal reformats. In accordance with CT protocol optimization, one or more of the following dose reduction techniques w ere utilized for this exam: automated exposure control, adjustment of mA and/or KV based on patient s ize, or use of iterative reconstructive technique. FINDINGS: Alignment: Stable mild cervical dextroscoliosis. Similar mild grade 1 anterolisthesis C4 on C5. Bones: No acute fracture or bone destructive process. Intact odontoid process and posterior elements. Interspace Levels/Facets: Stable multilevel mild to moderate diskogenic disease C4-C7, more advanced at C4-C5. Similar advanced degenerative changes at the atlantoaxial interspace. Multilevel mild to mo derate facet arthrosis, greatest on the left at C3-C7. Mild uncovertebral hypertrophy on the left. Other: No prevertebral soft tissue swelling. Clear visualized lung apices. Absent or hypoplastic left thyroid lobe. Bilateral chronic calcifications. IMPRESSION: 1. No acute fracture or dislocation of the cervical spine. 2. Similar multilevel diskogenic disease and facet arthrosis, including mild grade 1 degenerative ant erolisthesis C4 on C5. [facility] Referring Provider Line: [phone] SITE ID: [id number]
--- NOTE | 2017-06-11 14:16 | CT Preliminary Report ---
Exam: CT Chest W/O IMPRESSION: 1. Stable to slightly progressive severe T6 compression fracture with minor retropulsion posterior in feriorly. 2. Interval clearing of a previous right upper lobe nodular opacity. No new or residual pulmonary nod ule. 3. No other significant change including small bilateral pleural effusions and probable subjacent ate lectasis. [facility] SITE ID: [id number]
--- NOTE | 2017-06-11 14:19 | CT Report ---
EXAM: CT CHEST EXAM DATE: 06/11/2017 01:38 PM. CLINICAL HISTORY: Fall last night, hurts left chest. COMPARISONS: CTA chest 05/30/2017. TECHNIQUE: Routine helical CT imaging was performed through the chest. IV contrast: None. Reconstruct ions: Coronal and sagittal. In accordance with CT protocol optimization, one or more of the following dose reduction techniques w ere utilized for this exam: automated exposure control, adjustment of mA and/or KV based on patient s ize, or use of iterative reconstructive technique. FINDINGS: Lungs/Pleura: Stable tiny bilateral pleural effusions and subjacent lower lobe opacities consistent w ith atelectasis. Similar mild lingular atelectasis or consolidation. Interval resolution of small rig ht upper lobe nodular opacity. No new nodule or airspace infiltrate. No vascular congestion. No pneum othorax or pleural effusion. Mediastinum: Stable upper normal heart size without pericardial effusion. Moderate coronary calcifica tions. Calcified thoracic aorta, without aneurysm. Dystrophic aortic valvular calcifications. No medi astinal or hilar lymphadenopathy. Bones: Stable to slightly progressive severe anterior wedge compression fracture of T6, with 3 mm ret ropulsion posterior inferiorly and focal kyphosis. Right cervical rib articulating with the first rib again seen. No acute rib fracture. Visualized Abdomen: Small hiatus hernia. Atherosclerosis. No acute findings identified. IMPRESSION: 1. Stable to slightly progressive severe T6 compression fracture with minor retropulsion posterior in feriorly. 2. Interval clearing of a previous right upper lobe nodular opacity. No new or residual pulmonary nod ule. 3. No other significant change including small bilateral pleural effusions and probable subjacent ate lectasis. [facility] Referring Provider Line: [phone] SITE ID: [id number]
[2017-06-11] MEDS ORDERED: HYDROmorphone 1 MG/ML CARPUJECT IVP STA ×2 (14:22→15:13)
[2017-06-11] MEDS ORDERED: HYDROmorphone 1 MG/ML CARPUJECT ONE ×2 (14:29→15:18)
--- NOTE | 2017-06-11 15:05 | XRAY Preliminary Report ---
Exam: XR Hand 3 View LT IMPRESSION: 1. No fracture seen 2. Osteopenia 3. Severe osteoarthritis with erosive osteoarthritis [facility] SITE ID: [id number]
--- NOTE | 2017-06-11 15:08 | XRAY Report ---
EXAM: LEFT HAND RADIOGRAPHY EXAM DATE: 06/11/2017 02:24 PM. CLINICAL HISTORY: Fell and struck hand. COMPARISON: Bilateral hand radiographs 07/17/2015. TECHNIQUE: 3 views. FINDINGS: Bones: Osteopenia. No fracture seen. Joints: Severe osteoarthritis with joint space loss and osteophytosis in the second through fifth pro ximal and distal interphalangeal joints, first interphalangeal joint and second metacarpal phalangeal joint with gullwing appearance to some of the joints consistent with erosive osteoarthritis. Severe first carpometacarpal joint osteoarthritis with joint space loss and osteophytosis with central erosi ve change consistent with erosive osteoarthritis. Radiocarpal joint space loss. Soft Tissues: Normal. No soft tissue swelling. IMPRESSION: 1. No fracture seen 2. Osteopenia 3. Severe osteoarthritis with erosive osteoarthritis [facility] Referring Provider Line: [phone] SITE ID: [id number]
[2017-06-11 16:40] VITALS: BP 103/59
== END 2017-06-11 16:51 | disposition home or self-care (01) ==
LOC: EDUNIT# → ED 12:37
DX: S61.411A Laceration without foreign body of right hand, initial encounter (principal); S41.111A Laceration without foreign body of right upper arm, initial encounter; S81.811A Laceration without foreign body, right lower leg, initial encounter; S01.01XA Laceration without foreign body of scalp, initial encounter; W01.0XXA Fall on same level from slipping, tripping and stumbling without subsequent striking against object, initial encounter; Y92.009 Unspecified place in unspecified non-institutional (private) residence as the place of occurrence of the external cause; I11.0 Hypertensive heart disease with heart failure; I50.9 Heart failure, unspecified; E03.9 Hypothyroidism, unspecified; Z79.01 Long term (current) use of anticoagulants
CPT/HCPCS: 36415; 70450; 71250; 72125; 73130; 80053; 83690; 83735; 85610; 96374; 96376; 99283; 99284; A9270; J1170

== ENCOUNTER 2017-08-08 17:10 | Outpatient (CLI) | payer MEDICARE ==
[2017-08-08 18:57] LABS: BASOPHILS # (AUTO) 0.1 10^3/uL (0.0-0.1); BASOPHILS % (AUTO) 0.7 %; EOSINOPHILS % (AUTO) 0.5 %; HCT - HEMATOCRIT 31.5 % (37.0-47.0); HGB - HEMOGLOBIN 10.3 g/dL (12.0-16.0); LYMPHOCYTES # (AUTO) 1.3 10^3/uL (1.5-3.5); LYMPHOCYTES % (AUTO) 17.2 %; MEAN CORPUSCULAR HEMOGLOBIN 32.6 pg (27.0-31.0); MEAN CORPUSCULAR HGB CONC 32.8 g/dL (32.0-36.0); MEAN CORPUSCULAR VOLUME 99.2 fL (81.0-99.0); MEAN PLATELET VOLUME 9.8 fL (7.9-10.8); MONOCYTES # (AUTO) 0.9 10^3/uL (0.0-1.0); MONOCYTES % (AUTO) 12.4 %; NEUTROPHILS # (AUTO) 5.2 10^3/uL (1.5-6.6); NEUTROPHILS % (AUTO) 69.2 %; NUCLEATED RED BLOOD CELLS AUTO 0.1 /100WBC; RED BLOOD COUNT 3.17 10^6/uL (4.20-5.40); RED CELL DISTRIBUTION WIDTH 15.6 % (12.0-15.0); UNCORRECTED WHITE BLOOD COUNT 7.6 x10^3/uL; WHITE BLOOD COUNT 7.6 x10^3/uL (4.8-10.8)
[2017-08-08 19:05] LABS: ALBUMIN/GLOBULIN RATIO 0.9 (1.0-2.2); BILIRUBIN,TOTAL 0.5 mg/dL (0.2-1.0); CALCIUM 8.6 mg/dL (8.5-10.3); CREATININE 0.8 mg/dL (0.4-1.0); POTASSIUM 3.2 mmol/L (3.5-5.0); TOTAL PROTEIN 5.4 g/dL (6.7-8.2)
== END 2017-08-08 17:11 ==
LOC: EDUNIT# 17:10 → LAB.R 17:10
DX: I10 Essential (primary) hypertension (principal); D64.9 Anemia, unspecified; E03.9 Hypothyroidism, unspecified
CPT/HCPCS: 80053; 84443; 85025

== ENCOUNTER 2017-08-09 18:30 | Outpatient (CLI) | payer MEDICARE | END 2017-08-09 18:31 | disposition critical access hospital (66) | LOC: EMS 18:30 | PROVIDERS: ATTEND Surgery | DX: M25.559 Pain in unspecified hip (principal) | CPT/HCPCS: A0425; A0428; A0429 ==

== ENCOUNTER 2017-08-09 18:35 | Emergency (ER) | payer MEDICARE ==
[2017-08-09 20:38] LABS: BASOPHILS # (AUTO) 0.1 10^3/uL (0.0-0.1); BASOPHILS % (AUTO) 0.8 %; EOSINOPHILS # (AUTO) 0.1 10^3/uL (0.0-0.7); EOSINOPHILS % (AUTO) 1.6 %; HCT - HEMATOCRIT 31.1 % (37.0-47.0); HGB - HEMOGLOBIN 10.2 g/dL (12.0-16.0); LYMPHOCYTES # (AUTO) 1.2 10^3/uL (1.5-3.5); LYMPHOCYTES % (AUTO) 16.8 %; MEAN CORPUSCULAR HEMOGLOBIN 32.8 pg (27.0-31.0); MEAN CORPUSCULAR HGB CONC 32.9 g/dL (32.0-36.0); MEAN CORPUSCULAR VOLUME 99.5 fL (81.0-99.0); MEAN PLATELET VOLUME 9.3 fL (7.9-10.8); MONOCYTES # (AUTO) 0.8 10^3/uL (0.0-1.0); NEUTROPHILS # (AUTO) 4.8 10^3/uL (1.5-6.6); NEUTROPHILS % (AUTO) 68.8 %; NUCLEATED RED BLOOD CELLS AUTO 0.1 /100WBC; RED BLOOD COUNT 3.12 10^6/uL (4.20-5.40); RED CELL DISTRIBUTION WIDTH 15.9 % (12.0-15.0)
[2017-08-09 20:47] LABS: INR 1.1 (0.8-1.2); PT - PROTHROMBIN TIME 11.9 secs (9.9-12.6)
[2017-08-09 20:55] LABS: ALBUMIN/GLOBULIN RATIO 0.8 (1.0-2.2); BILIRUBIN,TOTAL 0.5 mg/dL (0.2-1.0); CALCIUM 8.4 mg/dL (8.5-10.3); CREATININE 0.7 mg/dL (0.4-1.0); POTASSIUM 3.6 mmol/L (3.5-5.0); TOTAL PROTEIN 5.5 g/dL (6.7-8.2)
--- NOTE | 2017-08-09 21:26 | XRAY Preliminary Report ---
Exam: XR HIP W/PELVIS 2-3V RT IMPRESSION: Stable appearance to displaced fracture through the proximal right femur. No evidence of dislocation. [facility] SITE ID: [id number]
--- NOTE | 2017-08-09 21:28 | CT Preliminary Report ---
Exam: CT HEAD W/O IMPRESSION: No acute intracranial CT abnormality. [facility] SITE ID: [id number]
--- NOTE | 2017-08-09 21:28 | XRAY Report ---
EXAM: RIGHT HIP AND PELVIS RADIOGRAPHY EXAM DATE: 08/09/2017 08:57 PM. HISTORY: Femur fracture. COMPARISONS: None. TECHNIQUE: 1 view of the pelvis and 1 view of the hip. FINDINGS: Bones: Displaced fracture again seen through the proximal right femur. There is varus angulation. Joints: No evidence of dislocation. Soft Tissues: Normal. No soft tissue swelling. IMPRESSION: Stable appearance to displaced fracture through the proximal right femur. No evidence of dislocation. [facility] Referring Provider Line: [phone] SITE ID: [id number]
--- NOTE | 2017-08-09 21:30 | CT Report ---
EXAM: CT HEAD EXAM DATE: 08/09/2017 09:07 PM. CLINICAL HISTORY: Confused, hx of subdural. COMPARISON: 06/11/2017. TECHNIQUE: Multiaxial CT images were obtained from the foramen magnum to the vertex. Reformats: Coron al. IV contrast: None. In accordance with CT protocol optimization, one or more of the following dose reduction techniques w ere utilized for this exam: automated exposure control, adjustment of mA and/or KV based on patient s ize, or use of iterative reconstructive technique. FINDINGS: Parenchyma: No intraparenchymal hemorrhage. No evidence of mass, midline shift, or CT findings of acu te infarction. Remote left basal ganglial lacunar infarct. Major-white differentiation is distinct. Extraaxial Spaces: Normal for age. No subdural or epidural collections identified. Ventricles: Normal in size and position. Sinuses and Orbits: Imaged paranasal sinuses, orbits, and mastoids show no significant abnormality. Bones: No evidence of fracture or calvarial defect. Other: None. IMPRESSION: No acute intracranial CT abnormality. [facility] Referring Provider Line: [phone] SITE ID: [id number]
[2017-08-09 21:51] LABS: BILIRUBIN,URINE NEGATIVE (NEGATIVE)
[2017-08-09 21:52] LABS: UA CHARGE (STRIP ONLY) YES; UR CULTURE IF IND NOT INDICATED
--- NOTE | 2017-08-09 22:01 | ED Physician Documentation ---
History of Present Illness - Stated complaint Stated Complaint: FALL - Chief complaint Chief Complaint: General - History obtained from History obtained from: Patient, EMS, Caregiver - History of Present Illness Timing: Chronic - Additonal information Additional information: Patient is an 82 year old, shelter patient who was sent in by the shelter for hip pain. Patient had a fall about month ago, and at that time patient was found to have s subdural, and a femur fracture. At that time they stated that the fracture was not operable. Patient fell two days ago, and films showed that there was a slightly displaced fracture. [facility] states that the patient fell again and was a bit confused so they sent the patient in for evaluation. Review of Systems Unable to obtain: Confused, Dementia PD PAST MEDICAL HISTORY - Past Medical History Past Medical History: Yes Cardiovascular: Congestive heart failure, Hypertension, Atrial fibrillation Respiratory: Asthma, Shortness of breath Neuro: None Endocrine/Autoimmune: HyPOthyroidism GI: None SUPERVISOR LABORATORY: None : None HEENT: None Psych: None Musculoskeletal: Osteoarthritis Derm: None - Past Surgical History Past Surgical History: Yes General: Bowel surgery, Colonoscopy /SUPERVISOR LABORATORY: Dilation and currettage HEENT: Cataracts - Present Medications Home Medications: Ambulatory Orders Medication Instructions Recorded Confirmed Levothyroxine [Synthroid] 50 mcg PO MOTUTHFRSA 03/02/13 08/09/17 traZODone [Desyrel] 100 mg PO QPM 08/01/14 08/09/17 Fluticasone [Flonase] 1 spray JAYCEE BID 03/23/15 08/09/17 Potassium Chloride 10 meq PO BID 03/23/15 08/09/17 Albuterol Sulfate [Proair Hfa] 2 puffs INH Q4H PRN 01/22/16 08/09/17 Atorvastatin Calcium 40 mg PO QPM 01/22/16 08/09/17 Azelastine HCl [Astelin] 1 - 2 sprays NS BID PRN 01/22/16 08/09/17 Furosemide [Lasix] 20 mg PO BID 01/22/16 08/09/17 Mometasone/Formoterol [Dulera 200 2 puffs INH BID 01/22/16 08/09/17 Mcg/5 Mcg Inhaler] Omeprazole 20 mg PO DAILY 04/11/16 08/09/17 Warfarin [Coumadin] 5 mg QPM 04/11/16 08/09/17 Glucosamine/D3/Boswellia Rachel 1 each PO DAILY 12/05/16 08/09/17 [Osteo Bi-Flex Tablet] Vitamin B Complex 1 each PO DAILY 12/05/16 08/09/17 fentaNYL [Fentanyl 12mcg patch] 2 each TD BID 06/18/17 08/09/17 oxyCODONE ER [OxyCONTIN] 20 mg PO Q12H 06/18/17 08/09/17 Calcium Carbonate [Calcium 1,200 mg PO BID 06/19/17 08/09/17 Carbonate] Cholecalciferol (Vitamin D3) 1,000 mg PO DAILY 06/19/17 08/09/17 [Vitamin D3] Cyanocobalamin (Vitamin B-12) 2,500 mg PO DAILY 06/19/17 08/09/17 [Vitamin B-12] Metoprolol Tartrate [Lopressor] 12.5 mg PO BID 06/19/17 08/09/17 Tiotropium [place] [Spiriva 2 puffs INH DAILY 06/19/17 08/09/17 Respimat] Vit C/E/Zinc/Lutein/Zeaxanthin 1 tab PO DAILY 06/19/17 08/09/17 [Ocuvite Eye Health Gummies] - Allergies Allergies/Adverse Reactions: Allergies Allergy/AdvReac Type Severity Reaction Status Date / Time acetaminophen [From Percocet] Allergy Unknown Verified 06/18/17 16:52 aloe vera [From Vagisil] Allergy Unknown Verified 06/18/17 16:52 amitriptyline Allergy Unknown Verified 06/18/17 16:52 amoxicillin trihydrate * Allergy Respiratory Verified 06/18/17 16:52 [From Augmentin] benzocaine [From Vagisil] Allergy Unknown Verified 06/18/17 16:52 ipratropium Allergy Unknown Verified 06/18/17 16:52 medroxyprogesterone acetate * Allergy Unknown Verified 06/18/17 16:52 [From Provera] meperidine HCl * Allergy Unknown Verified 06/18/17 16:52 [From Demerol] mineral oil * [From Vagisil] Allergy Unknown Verified 06/18/17 16:52 morphine Allergy Emesis Verified 06/18/17 16:52 nortriptyline Allergy Unknown Verified 06/18/17 16:52 oxycodone HCl * Allergy Unknown Verified 06/18/17 16:52 [From Percocet] Penicillins Allergy Unknown Verified 06/18/17 16:52 potassium clavulanate * Allergy Respiratory Verified 06/18/17 16:52 [From Augmentin] promethazine HCl * Allergy Unknown Verified 06/18/17 16:52 [From Phenergan] resorcinol [From Vagisil] Allergy Unknown Verified 06/18/17 16:52 starch [From Vagisil] Allergy Unknown Verified 06/18/17 16:52 Sulfa (Sulfonamide Allergy Nausea Verified 06/18/17 16:52 Antibiotics) sulfamethoxazole Allergy Unknown Verified 06/18/17 16:52 [From Bactrim] tiotropium bromide * Allergy Unknown Verified 06/18/17 16:52 [From Spiriva with HandiHaler] trimethoprim [From Bactrim] Allergy Unknown Verified 06/18/17 16:52 vitamin E acetate * Allergy Unknown Verified 06/18/17 16:52 [From Vagisil] vitamins A and D * Allergy Unknown Verified 06/18/17 16:52 [From Vagisil] erythromycin base AdvReac Unknown Verified 06/18/17 16:52 BIND Allergy Intermediate Emesis Uncoded 06/18/17 16:52 - Social History Does the pt smoke?: No Smoking Status: Never smoker Does the pt drink ETOH?: No Does the pt have substance abuse?: No - Immunizations Immunizations are current?: Yes Immunizations: TDAP current <10years - POLST Patient has POLST: No PD ED PE NORMAL - Vitals Vital signs reviewed: Yes - Neck Neck: Supple, no meningeal sign, No bony TTP - Cardiac Cardiac: No murmur, No rub - Respiratory Respiratory: No respiratory distress, Clear bilaterally - Abdomen Abdomen: Soft, Non tender, Non distended - Neuro Neuro: No motor deficit, Normal speech Eye Opening: Spontaneous Motor: Obeys Commands Verbal: Confused GCS Score: 14 - Psych Psych: Normal mood PD ED PE EXPANDED - HEENT HEENT: Head injury (multiple areas of bruising on patient's face), Dry mucous membranes - Derm Derm: Bruising (multiple ecchymosis throughout patients face and extremities) - Extremities Extremities: Right thigh (tenderness to palpation and gross deformity) Results - Vitals Vitals: Vital Signs - 24 hr 08/09/17 08/09/1717 18:37 19:20 22:28 Temperature 36.5 C 36.7 C Heart Rate 86 86 87 Respiratory 16 18 18 Rate Blood Pressure 118/68 116/77 115/56 L O2 Saturation 99 99 100 Oxygen O2 Source Room air - Labs Labs: Laboratory Tests 08/09/17 08/09/17 08/09/17 20:29 20:29 20:29 WBC 7.0 RBC 3.12 L Hgb 10.2 L Hct 31.1 L MCV 99.5 H MCH 32.8 H MCHC 32.9 RDW 15.9 H Plt Count 309 MPV 9.3 Neut # 4.8 Lymph # 1.2 L Routt # 0.8 Eos # 0.1 Baso # 0.1 Absolute Nucleated RBC 0.01 Nucleated RBC % 0.1 PT 11.9 INR 1.1 Sodium 136 Potassium 3.6 Chloride 101 Carbon Dioxide 27 Anion Gap 8.0 BUN 14 Creatinine 0.7 Estimated GFR (MDRD) 80 L Glucose 183 H Calcium 8.4 L Total Bilirubin 0.5 AST 26 ALT 11 Alkaline Phosphatase 192 H Total Protein 5.5 L Albumin 2.5 L Globulin 3.0 Albumin/Globulin Ratio 0.8 L Lipase 16 L Urine Color Urine Clarity Urine pH Ur Specific [place] Urine Protein Urine Glucose (UA) Urine Ketones Urine Occult Blood Urine Nitrite Urine Bilirubin Urine Urobilinogen Ur Leukocyte Esterase Ur Microscopic Review Urine Culture Comments 08/09/17 21:25 WBC RBC Hgb Hct MCV MCH MCHC RDW Plt Count MPV Neut # Lymph # Routt # Eos # Baso # Absolute Nucleated RBC Nucleated RBC % PT INR Sodium Potassium Chloride Carbon Dioxide Anion Gap BUN Creatinine Estimated GFR (MDRD) Glucose Calcium Total Bilirubin AST ALT Alkaline Phosphatase Total Protein Albumin Globulin Albumin/Globulin Ratio Lipase Urine Color YELLOW Urine Clarity CLEAR Urine pH 6.0 Ur Specific [place] 1.015 Urine Protein NEGATIVE Urine Glucose (UA) NEGATIVE Urine Ketones NEGATIVE Urine Occult Blood NEGATIVE Urine Nitrite NEGATIVE Urine Bilirubin NEGATIVE Urine Urobilinogen 0.2 (NORMAL) Ur Leukocyte Esterase NEGATIVE Ur Microscopic Review NOT INDICATED Urine Culture Comments NOT INDICATED - Rads (name of study) ct head Radiology: Final report received (no acute intracranial pathology) x-ray hip Radiology: Final report received (displaced femur fracture) PD MEDICAL DECISION MAKING - ED course Complexity details: reviewed old records, reviewed results, re-evaluated patient , considered differential, d/w patient ED course: Patient was seen and examined at bedside. labs were drawn and imaging was ordered. When patient returned form imaging the results were reviewed. Patient 's CT head had no acute abnormalities, but the femur fracture was now displaced. [facility] was contacted and they stated that the plan was to return to [place] for orthopedic follow up and surgery if indicated. Patient was placed in a splint for comfort and arrangements were made to send the patient back to [facility]. Departure - Departure Disposition: 01 Home, Self Care Clinical Impression: Femur fracture, right Condition: Good Instructions: ED Fx Lower Ext Follow-Up: Grzegorz Diamond MD [Primary Care Provider] - Tomorrow Comments: Your diagnostics today showed that your fracture has moved. My understanding is that the plan is to follow up with the orthopedic groups at [place] and this would be appropriate. You may need surgical intervention if that is something you wish to do. You should avoid to much movement and ambulation as it could disrupt the bones. You may return to the emergency department at any time if necessary for new, worsening or uncontrollable symptoms. Discharge Date/Time: 08/09/17 23:00
[2017-08-09] MEDS ORDERED: oxyCODONE/ACET 5/325 Prepack 4 PO ONE (22:28)
[2017-08-09 22:29] VITALS: BP 115/56
== END 2017-08-09 23:00 | disposition home or self-care (01) ==
LOC: EDUNIT# → ED 18:35
DX: S72.001G Fracture of unspecified part of neck of right femur, subsequent encounter for closed fracture with delayed healing (principal); W18.39XD Other fall on same level, subsequent encounter; I11.0 Hypertensive heart disease with heart failure; I50.9 Heart failure, unspecified; I48.91 Unspecified atrial fibrillation; Z79.01 Long term (current) use of anticoagulants; J45.909 Unspecified asthma, uncomplicated; E03.9 Hypothyroidism, unspecified; F03.90 Unspecified dementia, unspecified severity, without behavioral disturbance, psychotic disturbance, mood disturbance, and anxiety; M19.90 Unspecified osteoarthritis, unspecified site
CPT/HCPCS: 36415; 51701; 70450; 80053; 81001; 81003; 83690; 85025; 85610; 87086; 99283; 99284

== ENCOUNTER 2017-08-09 22:47 | Outpatient (CLI) | payer MEDICARE | END 2017-08-09 22:48 | disposition home or self-care (01) | LOC: EMS 22:47 | PROVIDERS: ATTEND Surgery | DX: S72.90XA Unspecified fracture of unspecified femur, initial encounter for closed fracture (principal) ==

== ENCOUNTER 2017-08-14 17:14 | Outpatient (CLI) | payer MEDICARE | END 2017-08-14 17:15 | disposition critical access hospital (66) | LOC: EMS 17:14 | PROVIDERS: ATTEND Surgery | DX: S72.001A Fracture of unspecified part of neck of right femur, initial encounter for closed fracture (principal); W19.XXXA Unspecified fall, initial encounter; Z91.81 History of falling | CPT/HCPCS: A0425; A0429 ==

== ENCOUNTER 2017-08-14 17:21 | Emergency (ER) | payer MEDICARE ==
--- NOTE | 2017-08-14 18:50 | ED Physician Documentation ---
PD HPI LOWER EXT INJURY - Stated complaint Stated Complaint: HIP PX - Chief complaint Chief Complaint: Ext Problem - History obtained from History obtained from: Patient, Family, Caregiver (Resident at [facility]) - History of Present Illness PD HPI LOW EXT INJURY LOCATION: Right, Hip Type of injury: Fall (She did not have a current fall but has had persistent pain in the right hip and significant pain with any motion and movement in bed. She apparently had an initial fall about 5 weeks ago in the end of June and was seen in [facility] with a small subdural and a wrist fracture and a hip fracture. The hip fracture was nondisplaced and the treatment option at the time was non-surgical. She was released to a senior care facility. She had not been able to be up and around very much and was getting a little bit of physical therapy. However she had a fall again on August 08 and had a x-ray of the hip which showed a displacement of the previous fracture which is now angulated. She was seen in the emergency room on the with increased pain due to that. The report from the ER physician from that date is that his understanding was the patient was this having a care plan through [facility] for orthopedic treatment at [facility]. However family members and the caregivers at [facility] state they have been unable to get the patient transferred to [place] for more definitive treatment. The patient prior to this had been ambulatory and reportedly the goal from the family is for her to be able to be up in or out of bed better for comfort. She did not have any new fall but was sent to the ER today because of worsening pain and to attempt facilitating definitive care of the hip.) Where injury occurred: Home (originally and then at [facility] 1 week ago, attempting to get out of bed herself.) Timing - details: Abrupt onset, Still present Worsened by: Moving, Palpating Associated symptoms: No: Weakness, Numbness, Swelling Contributing factors: No: Anticoagulated Similar symptoms before: Has not had sx before Recently seen: Emergency Dept (6 days ago and then was in [facility] for about 6 days end Jun/early Jul post fall with subdural and wrist fracture and hip fracture (nondisplaced at the time).) Review of Systems Unable to obtain: Confused Constitutional: reports: Fatigue. denies: Fever, Chills Nose: denies: Rhinorrhea / runny nose, Congestion Throat: denies: Sore throat Cardiac: denies: Chest pain / pressure Respiratory: denies: Dyspnea, Cough GI: denies: Abdominal Pain, Vomiting, Diarrhea : reports: Frequency Skin: denies: Rash, Lesions, Abrasion (s) Neurologic: reports: Generalized weakness. denies: Focal weakness, Numbness Endocrine: denies: Easy bruising / bleeding Immunocompromised: denies: Immunocompromised PD PAST MEDICAL HISTORY - Past Medical History Past Medical History: Yes Cardiovascular: Congestive heart failure, Hypertension, Atrial fibrillation Respiratory: Asthma, Shortness of breath Neuro: None Endocrine/Autoimmune: HyPOthyroidism GI: None BARREL RAISER: None : None HEENT: None Psych: None Musculoskeletal: Osteoarthritis Derm: None - Past Surgical History Past Surgical History: Yes General: Bowel surgery, Colonoscopy /BARREL RAISER: Dilation and currettage HEENT: Cataracts - Present Medications Home Medications: Ambulatory Orders Medication Instructions Recorded Confirmed Levothyroxine [Synthroid] 50 mcg PO MOTUTHFRSA 03/02/13 08/14/17 traZODone [Desyrel] 100 mg PO QPM 08/01/14 08/14/17 Fluticasone [Flonase] 1 spray JAYCEE BID 03/23/15 08/14/17 Potassium Chloride 10 meq PO BID 03/23/15 08/14/17 Albuterol Sulfate [Proair Hfa] 2 puffs INH Q4H PRN 01/22/16 08/14/17 Atorvastatin Calcium 40 mg PO QPM 01/22/16 08/14/17 Furosemide [Lasix] 20 mg PO BID 01/22/16 08/14/17 Omeprazole 20 mg PO DAILY 04/11/16 08/14/17 fentaNYL [Fentanyl 12mcg patch] 2 each TD BID 06/18/17 08/14/17 oxyCODONE ER [OxyCONTIN] 20 mg PO Q12H 06/18/17 08/14/17 Cyanocobalamin (Vitamin B-12) 2,500 mg PO DAILY 06/19/17 08/14/17 [Vitamin B-12] Metoprolol Tartrate [Lopressor] 12.5 mg PO BID 06/19/17 08/14/17 Tiotropium [place] [Spiriva 2 puffs INH DAILY 06/19/17 08/14/17 Respimat] Gabapentin 1 tab PO BID 08/14/17 08/14/17 - Allergies Allergies/Adverse Reactions: Allergies Allergy/AdvReac Type Severity Reaction Status Date / Time acetaminophen [From Percocet] Allergy Unknown Verified 06/18/17 16:52 aloe vera [From Vagisil] Allergy Unknown Verified 06/18/17 16:52 amitriptyline Allergy Unknown Verified 06/18/17 16:52 amoxicillin trihydrate * Allergy Respiratory Verified 06/18/17 16:52 [From Augmentin] benzocaine [From Vagisil] Allergy Unknown Verified 06/18/17 16:52 hydrocodone Allergy Unknown Verified 08/14/17 21:55 ipratropium Allergy Unknown Verified 06/18/17 16:52 medroxyprogesterone acetate * Allergy Unknown Verified 06/18/17 16:52 [From Provera] meperidine HCl * Allergy Unknown Verified 06/18/17 16:52 [From Demerol] mineral oil * [From Vagisil] Allergy Unknown Verified 06/18/17 16:52 morphine Allergy Emesis Verified 06/18/17 16:52 nortriptyline Allergy Unknown Verified 06/18/17 16:52 Penicillins Allergy Unknown Verified 06/18/17 16:52 potassium clavulanate * Allergy Respiratory Verified 06/18/17 16:52 [From Augmentin] promethazine HCl * Allergy Unknown Verified 06/18/17 16:52 [From Phenergan] resorcinol [From Vagisil] Allergy Unknown Verified 06/18/17 16:52 starch [From Vagisil] Allergy Unknown Verified 06/18/17 16:52 Sulfa (Sulfonamide Allergy Nausea Verified 06/18/17 16:52 Antibiotics) sulfamethoxazole Allergy Unknown Verified 06/18/17 16:52 [From Bactrim] tiotropium bromide * Allergy Unknown Verified 06/18/17 16:52 [From Spiriva with HandiHaler] trimethoprim [From Bactrim] Allergy Unknown Verified 06/18/17 16:52 vitamin E acetate * Allergy Unknown Verified 06/18/17 16:52 [From Vagisil] vitamins A and D * Allergy Unknown Verified 06/18/17 16:52 [From Vagisil] erythromycin base AdvReac Unknown Verified 06/18/17 16:52 BIND Allergy Intermediate Emesis Uncoded 06/18/17 16:52 - Social History Does the pt smoke?: No Smoking Status: Never smoker Does the pt drink ETOH?: No Does the pt have substance abuse?: No - Immunizations Immunizations are current?: Yes Immunizations: TDAP current <10years - POLST Patient has POLST: No PD ED PE NORMAL - Vitals Vital signs reviewed: Yes - General General: Alert and oriented X 3, Well developed/nourished, Other (pain right hip with any ROM of the right hip.) - HEENT HEENT: Atraumatic, Pharynx benign. 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 ) PD MEDICAL DECISION MAKING - ED course Complexity details: reviewed old records (CT head 08/09 showed resolution of prior subdural. Hip showed angulated fracture. Labs were okay. ), considered differential, d/w patient, d/w family (Your nurse did contact the patient's son who is power of division director and he would like her to get more definitive care of the hip which appears to not be healing and has displaced recently with the new in new fall. She has not been on blood thinners since her injury 5 weeks ago. She reportedly had been feeling otherwise okay the last several days.), d/w call center support consultant ([facility] transfer liaison - he looked at [facility] discharge info from early Jul, and we discussed current course and findings, and he concurred the patient best to be transferred for surgical repair. Since she had been to [facility] a month aog, would be better continuity to go there. They do not have Ortho beds open until AM discharges, so I will opt to have patient in ED overnight to then facilitate transfer tomorrow AM. ) Departure - Departure Disposition: 02 Transfer Acute Care Hosp Clinical Impression: Hip pain, right Intertrochanteric fracture of right hip Qualifiers: Encounter type: subsequent encounter Fracture type: closed Fracture alignment: displaced Fracture healing: with malunion Qualified Code(s): S72.141P - Displaced intertrochanteric fracture of right femur, subsequent encounter for closed fracture with malunion Condition: Stable Record reviewed to determine appropriate education?: Yes
--- NOTE | 2017-08-14 20:55 | XRAY Preliminary Report ---
Exam: XR HIP W/PELVIS 2-3V RT IMPRESSION: Changing alignment of the right intertrochanteric fracture fragments, no evidence of fusi on. [facility] SITE ID: [id number]
--- NOTE | 2017-08-14 21:00 | XRAY Report ---
EXAM: RIGHT HIP AND PELVIS RADIOGRAPHY EXAM DATE: 08/14/2017 08:07 PM. HISTORY: Recheck recent hip fracture. COMPARISONS: 08/09/2017. TECHNIQUE: 2 views of the pelvis and 1 view of the hip. FINDINGS: Bones: New interval mild distraction and decreased degree of marked varus deformity of the right inte rtrochanteric hip fracture. No evidence of bony fusion. Joints: Minimal degenerative changes both hip joints. Normal sacroiliac joints. Soft Tissues: Edema at the fracture site. IMPRESSION: Changing alignment of the right intertrochanteric fracture fragments, no evidence of fusi on. [facility] Referring Provider Line: [phone] SITE ID: [id number]
[2017-08-14] MEDS ORDERED: oxyCODONE 5 MG TABLET PO STA (21:54)
[2017-08-14] MEDS ORDERED: oxyCODONE 5 MG TABLET ONE (22:12)
[2017-08-14 22:39] LABS: BASOPHILS # (AUTO) 0.1 10^3/uL (0.0-0.1); EOSINOPHILS # (AUTO) 0.1 10^3/uL (0.0-0.7); EOSINOPHILS % (AUTO) 1.6 %; HGB - HEMOGLOBIN 10.3 g/dL (12.0-16.0); LYMPHOCYTES # (AUTO) 1.6 10^3/uL (1.5-3.5); MEAN CORPUSCULAR HEMOGLOBIN 32.4 pg (27.0-31.0); MEAN CORPUSCULAR HGB CONC 33.3 g/dL (32.0-36.0); MEAN CORPUSCULAR VOLUME 97.3 fL (81.0-99.0); MONOCYTES # (AUTO) 0.8 10^3/uL (0.0-1.0); MONOCYTES % (AUTO) 12.8 %; NEUTROPHILS # (AUTO) 3.5 10^3/uL (1.5-6.6); NEUTROPHILS % (AUTO) 57.6 %; RED BLOOD COUNT 3.19 10^6/uL (4.20-5.40); RED CELL DISTRIBUTION WIDTH 14.9 % (12.0-15.0)
[2017-08-14 22:52] LABS: ALBUMIN/GLOBULIN RATIO 0.9 (1.0-2.2); BILIRUBIN,TOTAL 0.4 mg/dL (0.2-1.0); CALCIUM 8.9 mg/dL (8.5-10.3); CREATININE 0.6 mg/dL (0.4-1.0); MAGNESIUM 1.6 mg/dL (1.7-2.8); POTASSIUM 4.2 mmol/L (3.5-5.0); TOTAL PROTEIN 5.6 g/dL (6.7-8.2)
[2017-08-14] MEDS ORDERED: traZODone 50 MG TABLET PO STA (23:59)
[2017-08-15] MEDS ORDERED: OLANZapine ODT 5 MG TABLET TL STA (02:56)
[2017-08-15] MEDS ORDERED: OLANZapine ODT 5 MG TABLET TL ONE (03:05)
[2017-08-15] MEDS ORDERED: DEXTROSE 5%-0.45% NACL 1,000 ML IV ONE (08:10)
[2017-08-15] MEDS ORDERED: HYDROmorphone 1 MG/ML SYRINGE IVP STA ×2 (08:10→14:39)
[2017-08-15] MEDS ORDERED: ONDANSETRON 4 MG/2 ML VIAL IVP STA (08:11)
--- NOTE | 2017-08-15 08:14 | ED Physician Documentation ---
History of Present Illness - Stated complaint Stated Complaint: HIP PX - Chief complaint Chief Complaint: Ext Problem - Additonal information Additional information: hx from [facility] [place] and [facility] EMR, ortho clinic notes, and SNF notes 82 female per EMR she saw palliative care in 2016 and is DNR limited but POLST has not been scanned into EMR nor did SNF send a copy in pt paperwork - we called [facility] and they advised ELISE has not signed the POLST so not in effect seems she fell early July and suffered a subdural, R distal radius fx and greater troch fx subdural and radius fx have been addressed - rpt CTH 07/30=no acute and per [facility] [place] ortho notes pt has healed colles fx with acceptable alignment per Prov Weston notes CT of hip at that time showed greater troch fx without femoral neck involvement and pt was felt not to need surgery she was dced to [facility] where she fell several more times pt was seen in [facility] [place] ortho clinic 08/08 after falls and rpt xrays showed intertroch fx with 90 degress of angulation and osteopenia - per ortho note due to prior subdural it was advised that she return to [facility] where her neuro was for ortho care - pt was returned to [facility] the pt was sent to [facility] [place] ER 08/09 for confusion and hip pain after another fall - rpt CTH showed no acute and rpt hip xray still showed that pt now has an intertroch fx with 90 degress of angulation and osteopenia - per ER notes [facility] was contacted and [facility] staff advised EMP that pt was going back to [facility] for further care per [facility] [place] ortho - so she was discharged back to [facility] again what has happened in the intervebing week is unclear but pt returned to ER again last night by EMS for continued hip pain and reportedly SNF and family frustrated yesterday EMP called [facility] who agreed to accept pt in [facility] but they had no beds so pt boarding in ER went to see pt she is agitated and in pain and has her legs tangled in the bed rails states her hip hurts has dementia so further hx difficult hear RRR lungs CTA, abd mildly TTP she states she needs to urinate, R hip ADDucted and internally roatated, MSV intact reviewed orders, last does of pain meds was approx 10 PM yesterday, removed pt meal tray as she should be NPO, ordered maintnance IVF and IV pain meds and a crane awaiting acceptnace for [facility] OR is closed so did not recontact [facility] [place] ortho as they would not be able to operate here anyway PD PAST MEDICAL HISTORY - Past Medical History Past Medical History: Yes Cardiovascular: Congestive heart failure, Hypertension, Atrial fibrillation Respiratory: Asthma, Shortness of breath Neuro: None Endocrine/Autoimmune: HyPOthyroidism GI: None BUSINESS ANALYTICS DIRECTOR: None : None HEENT: None Psych: None Musculoskeletal: Osteoarthritis Derm: None - Past Surgical History Past Surgical History: Yes General: Bowel surgery, Colonoscopy /BUSINESS ANALYTICS DIRECTOR: Dilation and currettage HEENT: Cataracts - Present Medications Home Medications: Ambulatory Orders Medication Instructions Recorded Confirmed Levothyroxine [Synthroid] 50 mcg PO MOTUTHFRSA 03/02/13 08/14/17 traZODone [Desyrel] 100 mg PO QPM 08/01/14 08/14/17 Fluticasone [Flonase] 1 spray JAYCEE BID 03/23/15 08/14/17 Potassium Chloride 10 meq PO BID 03/23/15 08/14/17 Albuterol Sulfate [Proair Hfa] 2 puffs INH Q4H PRN 01/22/16 08/14/17 Atorvastatin Calcium 40 mg PO QPM 01/22/16 08/14/17 Furosemide [Lasix] 20 mg PO BID 01/22/16 08/14/17 Omeprazole 20 mg PO DAILY 04/11/16 08/14/17 fentaNYL [Fentanyl 12mcg patch] 2 each TD BID 06/18/17 08/14/17 oxyCODONE ER [OxyCONTIN] 20 mg PO Q12H 06/18/17 08/14/17 Cyanocobalamin (Vitamin B-12) 2,500 mg PO DAILY 06/19/17 08/14/17 [Vitamin B-12] Metoprolol Tartrate [Lopressor] 12.5 mg PO BID 06/19/17 08/14/17 Tiotropium [place] [Spiriva 2 puffs INH DAILY 06/19/17 08/14/17 Respimat] Gabapentin 1 tab PO BID 08/14/17 08/14/17 - Allergies Allergies/Adverse Reactions: Allergies Allergy/AdvReac Type Severity Reaction Status Date / Time acetaminophen [From Percocet] Allergy Unknown Verified 06/18/17 16:52 aloe vera [From Vagisil] Allergy Unknown Verified 06/18/17 16:52 amitriptyline Allergy Unknown Verified 06/18/17 16:52 amoxicillin trihydrate * Allergy Respiratory Verified 06/18/17 16:52 [From Augmentin] benzocaine [From Vagisil] Allergy Unknown Verified 06/18/17 16:52 hydrocodone Allergy Unknown Verified 08/14/17 21:55 ipratropium Allergy Unknown Verified 06/18/17 16:52 medroxyprogesterone acetate * Allergy Unknown Verified 06/18/17 16:52 [From Provera] meperidine HCl * Allergy Unknown Verified 06/18/17 16:52 [From Demerol] mineral oil * [From Vagisil] Allergy Unknown Verified 06/18/17 16:52 morphine Allergy Emesis Verified 06/18/17 16:52 nortriptyline Allergy Unknown Verified 06/18/17 16:52 Penicillins Allergy Unknown Verified 06/18/17 16:52 potassium clavulanate * Allergy Respiratory Verified 06/18/17 16:52 [From Augmentin] promethazine HCl * Allergy Unknown Verified 06/18/17 16:52 [From Phenergan] resorcinol [From Vagisil] Allergy Unknown Verified 06/18/17 16:52 starch [From Vagisil] Allergy Unknown Verified 06/18/17 16:52 Sulfa (Sulfonamide Allergy Nausea Verified 06/18/17 16:52 Antibiotics) sulfamethoxazole Allergy Unknown Verified 06/18/17 16:52 [From Bactrim] tiotropium bromide * Allergy Unknown Verified 06/18/17 16:52 [From Spiriva with HandiHaler] trimethoprim [From Bactrim] Allergy Unknown Verified 06/18/17 16:52 vitamin E acetate * Allergy Unknown Verified 06/18/17 16:52 [From Vagisil] vitamins A and D * Allergy Unknown Verified 06/18/17 16:52 [From Vagisil] erythromycin base AdvReac Unknown Verified 06/18/17 16:52 BIND Allergy Intermediate Emesis Uncoded 06/18/17 16:52 - Social History Does the pt smoke?: No Smoking Status: Never smoker Does the pt drink ETOH?: No Does the pt have substance abuse?: No - Immunizations Immunizations are current?: Yes Immunizations: TDAP current <10years - POLST Patient has POLST: No Results - Vitals Vitals: Vital Signs - 24 hr 12/05/17 12/06/17 12/06/17 21:10 00:25 07:22 Temperature 37.0 C Heart Rate 79 77 87 Respiratory 19 16 19 Rate Blood Pressure 129/78 125/74 127/78 O2 Saturation 100 96 98 08/15/17 08/15/17 08:33 12:17 Temperature Heart Rate 85 75 Respiratory 16 16 Rate Blood Pressure 120/66 131/72 H O2 Saturation 98 100 Oxygen O2 Source Room air - Labs Labs: Laboratory Tests 08/14/17 08/14/17 08/14/17 21:31 22:34 22:34 WBC 6.0 RBC 3.19 L Hgb 10.3 L Hct 31.0 L MCV 97.3 MCH 32.4 H MCHC 33.3 RDW 14.9 Plt Count 330 MPV 9.0 Neut # 3.5 Lymph # 1.6 [place] # 0.8 Eos # 0.1 Baso # 0.1 Absolute Nucleated RBC 0.00 Nucleated RBC % 0.0 Whole Blood INR 1.0 Sodium 138 Potassium 4.2 Chloride 101 Carbon Dioxide 26 Anion Gap 11.0 BUN 13 Creatinine 0.6 Estimated GFR (MDRD) 95 Glucose 80 Calcium 8.9 Magnesium 1.6 L Total Bilirubin 0.4 AST 29 ALT 11 Alkaline Phosphatase 163 H Total Protein 5.6 L Albumin 2.7 L Globulin 2.9 Albumin/Globulin Ratio 0.9 L Lipase 16 L Urine Color Urine Clarity Urine pH Ur Specific [place] Urine Protein Urine Glucose (UA) Urine Ketones Urine Occult Blood Urine Nitrite Urine Bilirubin Urine Urobilinogen Ur Leukocyte Esterase Urine RBC Urine WBC Ur Squamous Epith Cells Urine Bacteria Ur Microscopic Review Urine Culture Comments 08/15/17 11:00 WBC RBC Hgb Hct MCV MCH MCHC RDW Plt Count MPV Neut # Lymph # [place] # Eos # Baso # Absolute Nucleated RBC Nucleated RBC % Whole Blood INR Sodium Potassium Chloride Carbon Dioxide Anion Gap BUN Creatinine Estimated GFR (MDRD) Glucose Calcium Magnesium Total Bilirubin AST ALT Alkaline Phosphatase Total Protein Albumin Globulin Albumin/Globulin Ratio Lipase Urine Color YELLOW Urine Clarity CLEAR Urine pH 6.0 Ur Specific [place] 1.020 Urine Protein NEGATIVE Urine Glucose (UA) NEGATIVE Urine Ketones NEGATIVE Urine Occult Blood NEGATIVE Urine Nitrite POSITIVE H Urine Bilirubin NEGATIVE Urine Urobilinogen 0.2 (NORMAL) Ur Leukocyte Esterase NEGATIVE Urine RBC 0-5 Urine WBC 6-10 H Ur Squamous Epith Cells NONE SEEN Urine Bacteria Many H Ur Microscopic Review INDICATED Urine Culture Comments INDICATED PD MEDICAL DECISION MAKING - ED course ED course: UA was + for UTI so gave rocephin given her many many allergies and dilaudid for pain s rxn serial abd exams = no further TTP accepted by [facility] and transported Departure - Departure Disposition: 02 Transfer Acute Care Hosp Clinical Impression: Hip pain, right Intertrochanteric fracture of right hip Qualifiers: Encounter type: subsequent encounter Fracture type: closed Fracture alignment: displaced Fracture healing: with malunion Qualified Code(s): S72.141P - Displaced intertrochanteric fracture of right femur, subsequent encounter for closed fracture with malunion UTI (urinary tract infection) Qualifiers: Urinary tract infection type: site unspecified Hematuria presence: without hematuria Qualified Code(s): N39.0 - Urinary tract infection, site not specified Condition: Stable Discharge Date/Time: 08/15/17 16:15
[2017-08-15] MEDS ORDERED: HYDROmorphone 1 MG/ML SYRINGE ONE ×2 (08:21→14:51)
[2017-08-15] MEDS ORDERED: ONDANSETRON 4 MG/2 ML VIAL ONE (08:21)
[2017-08-15 12:17] VITALS: BP 131/72
[2017-08-15 12:58] LABS: BILIRUBIN,URINE NEGATIVE (NEGATIVE)
[2017-08-15 13:01] LABS: UA w/ MICROSCOPIC CHARGE YES
[2017-08-15 13:10] LABS: UR CULTURE IF IND INDICATED
[2017-08-15] MEDS ORDERED: cefTRIAXone 1 GM in SODIUM CHLORIDE 0.9% MINIBAG 100 ML IV STA (14:37)
[2017-08-15] MEDS ORDERED: cefTRIAXone 1 GM VIAL ONE (14:52)
== END 2017-08-15 16:15 | disposition short-term general hospital (02) ==
LOC: EDUNIT# → ED 17:21
DX: S72.141P Displaced intertrochanteric fracture of right femur, subsequent encounter for closed fracture with malunion (principal); W19.XXXD Unspecified fall, subsequent encounter; N39.0 Urinary tract infection, site not specified; I11.0 Hypertensive heart disease with heart failure; I50.9 Heart failure, unspecified; E03.9 Hypothyroidism, unspecified
CPT/HCPCS: 36415; 51702; 73502; 80053; 81001; 83690; 83735; 85025; 85610; 87077; 87086; 87181; 96361; 96365; 96375; 96376; 99284; 99285; A9270; J1170; 81003; 99283

== ENCOUNTER 2017-08-15 16:10 | Outpatient (CLI) | payer MEDICARE | END 2017-08-15 16:11 | disposition short-term general hospital (02) | LOC: EMS 16:10 | PROVIDERS: ATTEND Surgery | DX: S72.009A Fracture of unspecified part of neck of unspecified femur, initial encounter for closed fracture (principal) | CPT/HCPCS: A0425; A0428 ==